=== PATIENT | male | born 1970 | race Caucasian/White ===

== ENCOUNTER 2019-05-24 10:14 | Emergency (ER) | payer OTHER, SELFPAY ==
--- NOTE | ~2019-05-24 | XR_ITS ---
EXAMINATION: XR knee LT 3V DATE: 05/24/2019 10:57 INDICATION: Posterior and lateral left knee pain post fall with twisting injury TECHNIQUE: Anteroposterior, oblique and crosstable lateral views of the left knee were obtained COMPARISON: None. FINDINGS: Alignment is normal. No fracture. No joint effusion/layering lipohemarthrosis. Prominent heterotopic ossification at the distal patellar tendon and hypertrophic change at the anterior tibial tuberosity which could represent sequela of old trauma or more likely childhood Fertile-Schlatter's disease. The re is overlying mild soft tissue swelling which could be related to acute contusion or more chronic p retibial bursitis. IMPRESSION: 1. No left knee joint effusion or acute osseous abnormality. Reviewed, dictated and finalized at location A.
[2019-05-24 10:30] VITALS: BP 145/90; PULSE 85; RESP 20; TEMP 36.4; O2SAT 98
--- NOTE | 2019-05-24 11:11 | ED.LOWEXIN ---
HPI - Extremity Injury (Lower) General Chief Complaint: Extremity Injury, Lower Stated Complaint: Twisted Ankle and cant bend his leg Source: patient Mode of arrival: ambulatory History of Present Illness HPI Narrative: This is a 49-year-old gentleman that presents with left knee pain after he twisted while stepping out of a truck, there is currently point tenderness lateral aspect of his left knee with some no swelling has decreased range of motion with extension of his left knee, there is no blunt trauma. The patient does rate his pain at about a 5/10 and currently no pain at rest. complaint: knee injury Onset (ago): hour(s) Injury: Left: knee (decrease in ability to extend knee) Type of Injury: inversion Place: work Severity: moderate Severity scale (1-10): 5 Exacerbating factors: weight bearing Context: walking Related Data Home Medications Medication Instructions Recorded Confirmed atorvastatin 40 mg PO DAILY 05/24/19 05/24/19 metformin 500 mg PO BID 05/24/19 05/24/19 metoprolol tartrate 25 mg PO DAILY 05/24/19 05/24/19 pioglitazone 30 mg PO DAILY 05/24/19 05/24/19 ticagrelor [Brilinta] 90 mg PO DAILY 05/24/19 05/24/19 Allergies Allergy/AdvReac Type Severity Reaction Status Date / Time Penicillins Allergy Severe bradycardia Verified 12/15/10 17:04 Review of Systems Review of Systems: All systems reviewed & are unremarkable except as noted in HPI and below PMFSH Past Medical History Medical History (Updated 05/24/19 @ 11:19 by Phil Mathur MD) ASHD (arteriosclerotic heart disease) Diabetes mellitus HTN (hypertension) Social History Social History Smoking status: Current every day smoker Exam Const: General: no acute distress and alert Orientation/consciousness: patient oriented x3 Limitations: altered mental status HENMT: Head: normal to inspection Eyes: Conjunctivae: conjunctivae normal Pupils: Equal, round and reactive pupils present Neck: Neck: normal visual inspection Chest: Chest palpation & inspection: normal inspection of the chest Resp: Effort & Inspection: normal respiratory effort Cardio: Rate: regular rate Rhythm: regular rhythm GI: GI Palp: Yes Soft to palpation Back/Spine/Pelvis: Back: no CVA tenderness Skin: General skin exam: normal color Rashes: no rashes Neuro: General: patient oriented x3 and moves all extremities Extrem: Other: Pain in the lateral aspect of his left knee with difficulty in full extension of his left knee. Course Vital Signs Vital signs: Vital Signs Temperature 36.4 C L 05/24/19 10:30 Pulse Rate 85 05/24/19 10:30 Respiratory Rate 05/24/19 10:30 Blood Pressure 145/90 H 05/24/19 10:30 Pulse Oximetry 98 05/24/19 10:30 Temperature 36.4 C L 05/24/19 10:30 Pulse Rate 85 05/24/19 10:30 Respiratory Rate 05/24/19 10:30 Blood Pressure 145/90 H 05/24/19 10:30 Pulse Oximetry 98 05/24/19 10:30 Critical Care Time Critical Care Time Critical Care Time: No Discharge Plan Discharge Clinical Impression: Knee sprain Qualifiers: Encounter type: initial encounter Involved ligament of knee: unspecified ligament Laterality: left Qualified Code(s): S83.92XA - Sprain of unspecified site of left knee, initial encounter Patient Disposition: Home, Self-Care Condition: Stable Instructions: Antibiotic Form, Knee Sprain (ED) Additional Instructions: With negative x-rays explained to the patient advise some he follow-up with his primary care physician for further evaluation and treatment if symptoms persist. Prescriptions: New tramadol [Ultram] 50 mg tablet 50 mg PO Q6H PRN (Reason: pain) Qty: 20 RF: 0 No Action atorvastatin 40 mg tablet 40 mg PO DAILY RF: 0 metformin 500 mg tablet 500 mg PO BID RF: 0 pioglitazone 30 mg tablet 30 mg PO DAILY RF: 0 metoprolol tartrate 25 mg tablet 25 mg PO DAILY RF: 0
[2019-05-24] MEDS: KETOROLAC (*BKC) 60 MG/2 ML VIAL IM (11:13)
[2019-05-24 11:46] VITALS: BP 135/85; PULSE 88; RESP 20; O2SAT 100
== END 2019-05-24 11:47 | disposition home or self-care (01) ==
PROVIDERS: Emergency Provider Emergency Medicine; PCP Family Medicine
DX: S83.92XA Sprain of unspecified site of left knee, initial encounter (principal); X58.XXXA Exposure to other specified factors, initial encounter
CPT/HCPCS: 73562; 96372; 99283; J1885

== ENCOUNTER 2019-05-26 08:30 | Outpatient (CLI) | payer OTHER, SELFPAY ==
[2019-05-26 08:53] LABS: Basophils Absolute Auto 0.03 K/mm3 (0.00-0.10); Basophils Percent Auto 0.3 % (0.0-1.0); Eosinophils Absolute Auto 0.13 K/mm3 (0.02-0.50); Eosinophils Percent Auto 1.5 % (1.0-6.0); Hematocrit 50.1 % (40.0-54.0); Hemoglobin 16.5 g/dL (14.0-18.0); Immature Granulocyte Absolute 0.04 K/mm3 (0.00-0.00); Immature Granulocyte Percent A 0.5 % (0.0-0.0); Lymphocytes Absolute Auto 2.06 K/mm3 (1.10-4.50); Lymphocytes Percent Auto 23.3 % (18.0-42.0); Mean Corpuscular HGB Conc 32.9 g/dL (32.0-36.0); Mean Corpuscular Hemoglobin 29.4 pg (27.0-31.0); Mean Corpuscular Volume 89.1 fL (78.0-102.0); Mean Platelet Volume 11.1 fl (8.7-11.0); Monocytes Absolute Auto 0.85 K/mm3 (0.10-0.90); Monocytes Percent Auto 9.6 % (2.0-11.0); Neutrophils Absolute Auto 5.7 K/mm3 (1.7-7.2); Neutrophils Percent Auto 64.8 % (50.0-70.0); Platelet Count Result 211 K/mm3 (150-420); Red Blood Count 5.62 M/mm3 (4.70-6.10); Red Cell Distribution Width 12.8 % (11.6-14.4); White Blood Count 8.8 K/mm3 (4.8-10.8)
[2019-05-26 09:54] LABS: Anion Gap 10.9 mmol/L (7-16); Blood Urea Nitrogen 15 mg/dL (7-18); Calcium 9.2 mg/dL (8.5-10.1); Carbon Dioxide 32 mmol/L (21-32); Chloride 102 mmol/L (98-108); Estimated Glomerular Filt Rate 59; Glucose 178 mg/dL (70-99); Osmolality Calculated 294 mOsm/kg (285-295); Potassium 4.9 mmol/L (3.5-5.1); Prostate Specific Antigen 1.3 ng/mL (< OR = 4.0); Sodium 140 mmol/L (136-145)
== END 2019-05-26 08:31 | disposition home or self-care (01) ==
LOC: CHSLAB 08:33
PROVIDERS: PCP Family Medicine; Visit Provider Family Medicine
DX: E11.9 Type 2 diabetes mellitus without complications (principal); Z12.5 Encounter for screening for malignant neoplasm of prostate; I10 Essential (primary) hypertension
CPT/HCPCS: 36415; 80048; 83036; 84153; 85025; G0103

== ENCOUNTER 2019-07-18 07:39 | Inpatient (IN) | payer OTHER, SELFPAY ==
[2019-07-18] VITALS (25 sets, daily range): BP systolic 137–171; BP diastolic 85–108; PULSE 69–90; RESP 10–21; TEMP 36.1–36.9; O2SAT 93–99; BMI 32.2
--- NOTE | ~2019-07-18 | XR_ITS ---
XR chest 2V DATE: 07/18/2019 08:07 INDICATION: Mid chest pain TECHNIQUE: AP and lateral views COMPARISON: 11/04/2017 lateral chest 11/04/2017 PA chest and right RIBS FINDINGS: Normal heart size. Mild aortic tortuosity. No pulmonary infiltrate or consolidation, pleural effusion or pulmonary vascular congestion or pneumo thorax is detected. No hilar or mediastinal enlargement. Degenerative changes of the thoracic and lumbar spine. IMPRESSION: No active cardiopulmonary disease Reviewed, dictated and finalized at location A.
--- NOTE | 2019-07-18 07:49 | ECG_ITS ---
Measurements Intervals [place] Rate: 78 P: 14 CT: 125 QRS: 35 QRSD: 103 T: 39 QT: 370 QTc: 423 Interpretive Statements SINUS RHYTHM DELAYED PRECORDIAL R/S TRANSITION BORDERLINE ST-T WAVE ABNORMALITY- INFERIOR LEADS BORDERLINE ECG Electronically Signed On 07-18-2019 8:00:02 CDT by Main Rosa D.O.
--- NOTE | 2019-07-18 07:57 | ED.CHESTPAIN ---
HPI - Chest Pain General Chief Complaint: Chest Pain Stated Complaint: CP Time Seen by Provider: 07/18/19 07:57 Source: patient Mode of arrival: EMS Limitations: no limitations History of Present Illness HPI narrative: Patient is a 49-year-old male who presents to the emergency department via EMS for chest pain. Patient has prior history of NSTEMI with stent placement in his LAD in 2018. Patient reports noncompliance with cardiology follow-up. Patient was at work this morning when he had onset of symptoms at approximately 0630. Patient has noted his symptoms to be intermittent, but fairly persistent. He does report improvement in his chest pain with sublingual nitroglycerin given by EMS. EMS also administered 4 baby aspirin. Patient has had nausea but denies any vomiting. He reports shortness of breath. He denies any diaphoresis. He denies radiation of his chest pain, but does report numb tingling sensation in his left arm and hand. MD complaint: chest pain Pertinent past history: coronary artery disease, prior [place] and [employer] Timing of current episode: still present Pain location: substernal Pain radiation: none Associated symptoms: nausea and dyspnea Treatment prior to arrival: aspirin and nitroglycerin Related Data Home Medications Medication Instructions Recorded Confirmed atorvastatin 40 mg PO DAILY 05/24/19 05/24/19 metformin 500 mg PO BID 05/24/19 05/24/19 metoprolol tartrate 25 mg PO DAILY 05/24/19 05/24/19 pioglitazone 30 mg PO DAILY 05/24/19 05/24/19 ticagrelor [Brilinta] 90 mg PO DAILY 05/24/19 05/24/19 Allergies Allergy/AdvReac Type Severity Reaction Status Date / Time Penicillins Allergy Severe bradycardia Verified 12/15/10 17:04 amoxicillin Allergy Hives Verified 07/18/19 08:08 Review of Systems Review of Systems: All systems reviewed & are unremarkable except as noted in HPI and below Constitutional: Constitutional: Denies excessive sweating Cardiovascular: Cardiovascular: Reports chest pain Respiratory: Respiratory: Reports dyspnea Gastrointestinal: Gastrointestinal: Denies abdominal pain, Reports nausea and Denies vomiting PMFSH Past Medical History Medical History ASHD (arteriosclerotic heart disease) Diabetes mellitus HTN (hypertension) NSTEMI (non-ST elevated myocardial infarction) Surgical History Surgical History History of cardiac catheterization History of coronary angioplasty with insertion of stent History of orthopedic surgery Social History Social History (Updated 07/18/19 @ 08:17 by Riana Delvalle MD) Smoking packs per day: 0.5 Smoking cigarettes per day: 10.0 Smoking status: Current every day smoker Exam Const: General: cooperative, no acute distress and alert Nutritional Appearance: obese Orientation/consciousness: patient oriented x3 Limitations: no limitations HENMT: Mouth: Yes lip normal and Yes moist mucous membranes Resp: Effort & Inspection: normal respiratory effort Auscultation: clear to auscultation bilaterally Cardio: Rate: regular rate Rhythm: regular rhythm GI: GI Palp: Yes Soft to palpation and No Tenderness to palpation present (GI) Auscultation: normal bowel sounds Skin: General skin exam: normal color Neuro: General: patient oriented x3 Cognition (Neuro): normal cognition Speech: normal speech Extrem: General: normal to inspection, full ROM and no clubbing, cyanosis or edema Psych: Mental Status: mental status grossly normal Affect: normal affect Attitude: cooperative Course Course Emergency Course: Patient presents to the emergency department with report of chest pain with history of coronary artery disease and NSTEMI in the past. Patient with nonspecific EKG changes this morning and elevated troponin. Patient pain-free after administration of sublingual nitroglycerin in the emergency department. Nitrog
[2019-07-18 08:02] LABS: Basophils Absolute Auto 0.1 K/mm3 (0.0-0.1); Basophils Percent Auto 0.7 % (0.2-1.2); Eosinophils Absolute Auto 0.2 K/mm3 (0-0.3); Eosinophils Percent Auto 1.7 % (0-4.4); Hemoglobin 15.5 g/dL (14.0-18.0); Immature Granulocyte Absolute 0.04 K/mm3 (0.00-0.031); Immature Granulocyte Percent A 0.4 % (0-0.5); Lymphocytes Absolute Auto 2.07 K/mm3 (0.9-3.2); Lymphocytes Percent Auto 22.6 % (18.3-44.2); Mean Corpuscular Hemoglobin 29.6 pg (26-34); Mean Corpuscular Volume 89.7 fl (80-100); Monocytes Absolute Auto 0.9 K/mm3 (0.1-0.6); Monocytes Percent Auto 9.5 % (2.6-8.5); Neutrophils Percent Auto 65.1 % (45.5-73.1); Platelet Count Result 208 k/mm3 (150-375); Red Blood Count 5.24 M/mm3 (4.6-6.20); Red Cell Distribution Width 13.7 % (11.5-14.5); White Blood Count 9.2 K/mm3 (4.5-10.0)
[2019-07-18 08:14] LABS: Blood Urea Nitrogen 17 mg/dL (9-20); Calcium 9.2 mg/dL (8.4-10.2); Carbon Dioxide 28 mmol/L (22-30); Chloride 103 mmol/L (98-107); Estimated CRCL calculation 105 ml/min; Estimated Glomerular Filt Rate > 60; Glucose 255 mg/dL (75-110); Potassium 4.1 mmol/L (3.4-5.0); Sodium 136 mmol/L (137-145)
[2019-07-18 08:22] LABS: INR 0.9; Partial Thromboplastin Time 26.9 SECONDS (22.3-36.8); Prothrombin Time 11.8 Seconds (11.1-14.7)
[2019-07-18] MEDS: NITROGLYCERIN SL 0.4 MG TABLET SUBLINGUAL (08:22)
[2019-07-18] MEDS: NITROGLYCERIN OINTMENT 1 INCH DOSE TRANSDERM ×2 (08:22→12:41)
[2019-07-18 08:38] LABS: Troponin I 0.082 ng/mL (0.000-0.034)
--- NOTE | 2019-07-18 08:55 | PC.NURSE ---
Patient unable to verify medications taken at home at this time.
[2019-07-18 09:43] LABS: Glucose Point of Care 223 (65-105)
--- NOTE | 2019-07-18 10:39 | ADMGEN ---
This patient, Alberto Crenshaw, was admitted to IMU Room 231-01 @ 1035. Patient oriented to hospital policies and general routines including ID bracelet, bed and alarms, visiting hours, pain management, procedures, bathroom and other care routines, personal items, smoking policy, room service/diet, and visiting hours. Valuables list has been completed. I
--- NOTE | 2019-07-18 11:02 | ECG_ITS ---
Measurements Intervals [place] Rate: 70 P: 12 MS: 139 QRS: 61 QRSD: 103 T: 72 QT: 383 QTc: 415 Interpretive Statements SINUS RHYTHM NORMAL ECG Electronically Signed On 07-18-2019 11:47:01 CDT by Main Rosa D.O.
--- NOTE | 2019-07-18 12:15 | WPDCN ---
Assessment and Plan Assessment and plan (1) Non-ST elevation NV (NSTEMI): Code(s): I21.4 - Non-ST elevation (NSTEMI) myocardial infarction Status: Acute Assessment and Plan: History of CAD, Left anterior descending stent in August 2017. Presents with unstable angina and a non-STEMI, elevated troponins and some EKG changes which have resolved. I recommend repeat cardiac catheterization with possible PCI. Reviewed the procedure with the patient. He is eager to get this done and get discharged as he has a lot of personal problems to attend to. I have recommended repeatedly that he attend to his heart and health, follow medical advice, take it easy for at least a week with no heavy lifting or strenuous exertion, and comply with medications and follow-up. The patient agrees to take medications and follow-up. I am checking to see if we can proceed with PCI today. (2) HTN (hypertension): Code(s): I10 - Essential (primary) hypertension Status: Acute Assessment and Plan: Not at goal, probably secondary to noncompliance (3) Hyperlipidemia: Code(s): E78.5 - Hyperlipidemia, unspecified Status: Acute Assessment and Plan: Resume statin (4) Tobacco use: Code(s): Z72.0 - Tobacco use Status: Acute Assessment and Plan: Smoking cessation advised (5) Diabetes mellitus: Code(s): E11.9 - Type 2 diabetes mellitus without complications Status: Acute (6) Psychosocial stressors: Code(s): Z65.8 - Other specified problems related to psychosocial circumstances Status: Acute HPI Data of Consult Date/Time: 07/18/19 12:15 Requesting Physician: Gunnar Nava MD Primary Care Provider: Jovani Jorge MD Consult Narrative Narrative: Date of service: 07/18/2019 Alberto Crenshaw is a 49 year old male whom we were kindly asked to see by the hospitalist for advice and opinion regarding the patient's unstable angina/non-STEMI in consultation. Restrict her non-STEMI August 2017 treated with a drug-eluting stent to the mid Left anterior descending by Dr. Webb. Mr. Crenshaw was last seen by Dr. Webb, jennifer, in July 2018. Although he did follow-up in taking his aspirin/Brilinta as recommended after his stent, he subsequently has been noncompliant with follow-up and noncompliant with medications. He was doing well until this morning when he developed squeezing chest discomfort and intermittent numbness to his left arm. An ambulance was called and he was given some nitroglycerin there as well as in the emergency room. His discomfort is completely resolved after 3 or 4 nitros. The patient had a non-STEMI in August 2017. He had a subtotal occlusion of the mid Left anterior descending which was addressed with a 3 x 15 mm drug-eluting stent by Dr. Webb. He had a large area of apical akinesis, EF 35% of the time. The 1st OM had a 40-50% stenosis but otherwise there was no significant disease of the other vessels. The patient has a history of hypertension, hyperlipidemia, diabetes and smoking. It is unclear if he is taking all of his medications at this time and the patient could not recall all of his medications. Thus our medication list may be incomplete or inaccurate. Review of Systems Constitutional: Constitutional: Denies weakness Eyes: Eyes: Denies blurry vision ENT: Denies dysphagia and Denies epistaxis Cardiovascular: Cardiovascular: Reports chest pain, Denies pedal edema, Denies leg edema, Denies lightheadedness and Denies palpitations Respiratory: Respiratory: Denies chest congestion, Denies cough, Denies dyspnea and Denies dyspnea on exertion Gastrointestinal: Gastrointestinal: Denies abdominal pain, Denies hematochezia and Denies hematemesis Musculoskeletal: Musculoskeletal: Reports arthralgias Integu
[2019-07-18 12:38] LABS: Glucose Point of Care 167 (65-105)
[2019-07-18] MEDS: METOPROLOL TARTRATE 25 MG TABLET PO ×2 (13:30→21:08)
--- NOTE | 2019-07-18 14:45 | WPDMODSED ---
Moderate Sedation Note-Pt Data Patient Data Allergies Allergy/AdvReac Type Severity Reaction Status Date / Time Penicillins Allergy Severe bradycardia Verified 12/15/10 17:04 amoxicillin Allergy Hives Verified 07/18/19 08:08 Home Medications Medication Instructions Recorded Confirmed Type atorvastatin 40 mg PO DAILY 05/24/19 07/18/19 History metformin 500 mg PO BID 05/24/19 07/18/19 History metoprolol tartrate 25 mg PO DAILY 05/24/19 07/18/19 History pioglitazone 30 mg PO DAILY 05/24/19 07/18/19 History Current Medications: Active Medications Aspirin (Aspirin Chewable) 81 mg PO DAILY@0800 FUAD Atorvastatin Calcium (Lipitor) 40 mg PO DAILY [facility] Sodium Chloride (Normal Saline Iv) 500 mls @ 100 mls/hr IV CONT .Q5H [facility] Metoprolol Tartrate (Lopressor) 25 mg PO DAILY [facility] Nitroglycerin (Nitroglycerin Oint 1 Inch) 1 inch TRANSDERM Q6HR [facility] Last Admin: 07/18/19 12:41 Dose: 1 inch Documented by: Nitroglycerin (Nitrostat Subl 0.4 Mg (1/150)) 0.4 mg SUBLINGUAL Q5MIN PRN PRN Reason: Chest Pain Ondansetron HCl (Zofran Inj) 4 mg IV PUSH Q4H PRN PRN Reason: Nausea Pioglitazone HCl (Actos) 30 mg PO DAILY [facility] Sedation/Anesthesia: No previous sedation/anesthesia problems (including family history). [facility] Past Medical History Medical History ASHD (arteriosclerotic heart disease) Diabetes mellitus HTN (hypertension) Hyperlipidemia NSTEMI (non-ST elevated myocardial infarction) Left anterior descending stent in August 2017 Tobacco use Surgical History Surgical History History of cardiac catheterization History of coronary angioplasty with insertion of stent History of orthopedic surgery Family History Family History (Updated 07/18/19 @ 10:45 by Susan Jurado RN) Father Diabetes mellitus FH: heart attack Hypertension Mother Diabetes mellitus FH: heart attack Hypertension Social History Social History (Updated 07/18/19 @ 12:35 by Jaimie Marie MD) Social History: Patient is but on board terms with his . He has 2 young children. 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 He is very stressed by his social situation. In addition it sounds like he is signing some type of contract for a new apartment this week and will need to transport his personal belongings to this apartment. He states he has no friends or family that can help. Smoking packs per day: 0.5 Smoking cigarettes per day: 10.0 Years smoked: 35 Smoking pack-years: 17.50 Smoking status: Heavy tobacco smoker Tobacco type: cigarettes Alcohol intake: never Substance use: never Gender identity (if verbalized by the patient): Male Spiritual care concerns: No Mod Sed Physical Exam Physical Exam Pre Procedural Exam: Normal: Airway Hours since solid foods: 12 Hours since liquid intake: 12 Internal Medicine - PN: Obj Da Vital Signs Vital Signs: Vital Signs - 24 hr 07/18/19 07:43 07/18/19 07:48 07/18/19 08:24 Temperature 36.9 C Pulse Rate 81 85 80 Respiratory Rate 12 19 Blood Pressure 171/102 H 155/105 H Pulse Oximetry 98 94 07/18/19 08:46 07/18/19 09:38 07/18/19 10:18 Temperature Pulse Rate 83 69 77 Respiratory Rate 21 H 18 13 Blood Pressure 145/95 H 141/85 H 149/104 H Pulse Oximetry 93 98 97 07/18/19 10:35 07/18/19 11:17 07/18/19 12:00 Temperature 36.1 C L 36.2 C L Pulse Rate 76 77 69 Respiratory Rate 18 18 Blood Pressure 166/105 H 151/94 H 154/94 H Pulse Oximetry 99 98 07/18/19 13:30 Temperature Pulse Rate 77 Respiratory Rate Blood Pressure Pulse Oximetry Meds/Results Medications: Active Medications Generic Name Dose Route Start Last Admin Trade Name Freq PRN Reason Stop Dose Admin Aspirin 81 mg 07/19/19 08:00 Aspirin Chewable PO DAILY@0800 FUAD Atorvastatin Calcium 40 mg 07/19/19 09:00 Lipitor PO DAILY FUAD Sodium Chloride 500 mls @ 100 mls/hr 07/18/19 12:50 Normal
--- NOTE | 2019-07-18 14:45 | WPDHPUPDATE1 ---
History and Physical Update Update Date/Time: 07/18/19 14:45 History and Physical has been reviewed, including an updated exam of the patient. There are NO changes in the patient's condition. Risks, benefits, and alternatives have been discussed and questions answered. Patient agrees to proceed with procedure.
--- NOTE | 2019-07-18 15:02 | WPDCARDPROC ---
Cardiac Cath Procedure Note Date of procedure:: 07/18/19 Performing physician:: Cedric Unger MD Procedure Procedure note:: CARDIAC CATHETERIZATION AND PERCUTANEOUS CORONARY INTERVENTION REPORT DATE OF PROCEDURE: 07/18/2019 INDICATION FOR PROCEDURE: Acute coronary syndrome - non ST elevation myocardial infarction BRIEF CLINICAL HISTORY: 49-year-old male with known CAD, history of non ST elevation AK status post PCI/ stenting of mid LAD using a 3.0 x 15 mm everolimus eluting stent on 09/05/2017 in the setting of non ST elevation AK; hypertension, type 2 diabetes mellitus, tobacco abuse, and noncompliance. Patient was admitted to the hospital with complaints of chest discomfort. His EKG did not show any significant ST-T abnormalities. Troponins were significantly elevated with current peak troponin level of 35.6 Patient was referred by Dr. Marie for coronary angiogram. Benefits and risks of the procedure were discussed with patient and informed consent was taken prior to the procedure. PROCEDURES PERFORMED: 1. Left heart catheterization- Selective left and right coronary angiogram; left ventriculogram and hemodynamic assessment 2. Percutaneous coronary intervention-Balloon angioplasty and stenting of subtotal occlusion of OM 1 branch using a 2.5 x 13 mm Biotronik orsiro sirolimus eluting stent. 3. Selective right common femoral angiogram and deployment of Angio-Seal hemostatic device 4. Moderate sedation-CPT code 15806 MODERATE SEDATION: Midazolam 1 mg; fentanyl 25 mcg. Start time 1517 , Stop time 1539 ; Total [id number] time 22 minutes; Lalit Bloom RN was trained observer for moderate sedation. ACCESS SITE: Right common femoral artery PROCEDURE NOTE: After obtaining informed consent, patient was brought to catheterization lab and prepped and draped in a usual sterile manner. After local anesthesia with lidocaine, right common femoral artery access was taken with micropuncture needle followed by insertion of a 6 Setswana sheath. Selective left and right coronary angiogram was performed using 5 Setswana JL4 and JR4 catheters respectively. Orthogonal views were taken. Next, a 5 Setswana pigtail catheter was advanced in the LV cavity and was flushed with normal saline. LV pressure measurement was performed. After this, left ventriculogram was performed. The catheter was flushed again, and gradient across the aortic valve was measured on the pullback of the catheter. Selective right common femoral angiogram was performed after PCI followed by successful deployment of Angio-Seal vascular closure device. Patient tolerated procedure well without any immediate procedure related complications. FINDINGS: LEFT MAIN CORONARY: the left main coronary artery is a large caliber, short vessel without angiographically significant focal stenosis. The vessel bifurcates into LAD and left circumflex branches. LEFT ANTERIOR DESCENDING ARTERY: The proximal LAD is a medium to large caliber vessel without significant focal stenosis; previously placed stent in the mid segment is patent without significant luminal loss; the LAD tapers distally and reaches the LV apex. There is slightly blood flow in the LAD. D3-Major diagonal branch is a medium-sized vessel without significant focal stenosis. D1 and D2 are small diagonal branches with high-grade stenosis at the ostium. LEFT CIRCUMFLEX ARTERY: The left circumflex artery is a large size, dominant vessel. There is mild eccentric were 20% stenosis in the proximal segment at the origin of the OM1 branch. The OM1 branch itself has 99% stenosis in the proximal segment. OM2, OM3 branches are small to medium-sized vessels without significant focal stenosis. OM 4 branch is a medium-sized vessel with [id number] diffuse disease. The LCX gives rise to medium to large size LPDA without significant focal stenosis. Distal LCX has [id number] diffuse disease. RIGHT CORONARY ARTERY: The right coronary arter
--- NOTE | 2019-07-18 15:45 | PM.IMHP ---
H&P: HPI History of Present Illness Chief complaint: nstemi,diabetic hyperglycemia Narrative: Alberto Crenshaw is a 49 year old male with known CAD here for chest pain. Patient on 6:00 a.m. this morning awoke with squeezing chest pain. There is no radiation to the pain but he does state his left arm was numb. No shortness of breath or nausea. The pain occurred at rest. He did not have any emotional stress recently. He was at work and an ambulance was called. Patient was treated in the ambulance as chest pain did improve. Patient was brought to the emergency room for evaluation. In the emergency room he received nitroglycerin and his chest pain resolved. His 1st troponin was elevated and increased to 35.6. EKG showed borderline ST T wave changes in the inferior leads. Repeat EKG was read as normal. Chest x-ray was clear. Patient was seen by cardiology and was taken for heart catheterization. 99% stenosis of the proximal segment the 1st OM branch with stent placement. He also had a high-grade stenosis at the ostium of a small size D1 and D2. His EF was 60-65%. This evening patient feels better. He tells me that he has stopped all these medicines over the past few months including aspirin. He does not check his blood pressure glucose at home. He has not been having any recent complaints of chest pain, shortness of breath or dyspnea on exertion. He does have a mild headache which began after his treatment in the emergency room. He states he has chronic hematuria noted 25 years ago without a clear diagnosis. He denies any depression or anxiety. He has been having increased stress at home. He does have a chronic cough. He smokes about 1-10 cigarettes per day and has smoked for about 35 years. He denies alcohol or drug use. No fever or chills. No dysuria. He denies unexplained fever, weight loss or night sweats. Review of Systems Review of Systems: All systems reviewed & are unremarkable except as noted in HPI and below PMFSH Past Medical History Medical History ASHD (arteriosclerotic heart disease) Diabetes mellitus HTN (hypertension) Hyperlipidemia NSTEMI (non-ST elevated myocardial infarction) Left anterior descending stent in August 2017 Tobacco use Surgical History Surgical History History of cardiac catheterization History of coronary angioplasty with insertion of stent History of orthopedic surgery Family History Family History Father Diabetes mellitus FH: heart attack Hypertension Mother Diabetes mellitus FH: heart attack Hypertension Social History Social History (Updated 07/18/19 @ 19:58 by Lino Goncalves MD) Social History: Patient is and currently lives at home with his and 2 young children. 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 He has a very stressful social situation. He states he has no friends or family that can help. He smokes 1-10 cig./day x 35 yrs. no alcohol or drug use. He nominates his father to be the individual to make medical decisions for him if he is not able ([phone]). He specifically states he does not want his to make decisons for him. He was in the [employer] x 17 yrs. Smoking packs per day: 0.5 Smoking cigarettes per day: 10.0 Years smoked: 35 Smoking pack-years: 17.50 Smoking status: Heavy tobacco smoker Tobacco type: cigarettes Alcohol intake: never Substance use: never Gender identity (if verbalized by the patient): Male Spiritual care concerns: No Meds Home Medications and Allergies Home Medications Medication Instructions Recorded Confirmed Type aspirin [Children's Aspirin] 81 mg PO DAILY@0800 #30 tablet 07/19/19 Rx atorvastatin 40 mg PO DAILY #30 tablet 07/19/19 07/18/19 Rx losartan 25 mg PO QAM #30 tablet 07/19/19 Rx metformin 500 mg PO BID #60 tablet 07/19/19 07/18/19 Rx metoprolol tartrate 25 mg PO
--- NOTE | 2019-07-18 16:50 | PC.NURSE ---
1500 - to cardiac clinical genetics laboratory chief for procedure via stretcher accompanied by RN's
--- NOTE | 2019-07-18 17:07 | PC.NURSE ---
1700- RETURNED TO ROOM - POST PROCEDURE- RIGHT GROIN SITE-WNL- DRESSING CDI, +2 PEDAL PULSE
[2019-07-18] MEDS: SODIUM CHLORIDE 0.9% IV 1,000 ML 125 ML IV CONT (17:11)
[2019-07-18] MEDS: PIOGLITAZONE HCL 30 MG TABLET PO (17:15)
[2019-07-18] MEDS: ATORVASTATIN 40 MG TABLET PO (17:15)
[2019-07-18] MEDS: ACETAMINOPHEN 325 MG TABLET 650 MG PO (17:23)
[2019-07-18] MEDS: LOSARTAN POTASSIUM 25 MG TABLET PO (17:23)
[2019-07-18 20:00] LABS: Glucose Point of Care 151 (65-105)
[2019-07-18 20:49] LABS: Glucose Point of Care 164 (65-105)
[2019-07-18] MEDS: TICAGRELOR 90 MG TABLET PO (21:09)
[2019-07-19] VITALS (10 sets, daily range): BP systolic 109–140; BP diastolic 70–94; PULSE 72–87; RESP 18–20; TEMP 35.9–36.4; O2SAT 96–99
[2019-07-19 05:33] LABS: Hematocrit 46.6 % (42.0-52.0); Hemoglobin 15.5 g/dL (14.0-18.0); Mean Corpuscular HGB Conc 33.3 g/dl (32-36); Mean Corpuscular Hemoglobin 29.8 pg (26-34); Mean Corpuscular Volume 89.6 fl (80-100); Platelet Count Result 197 k/mm3 (150-375); Red Cell Distribution Width 13.8 % (11.5-14.5); White Blood Count 11.5 K/mm3 (4.5-10.0)
[2019-07-19 05:43] LABS: Alanine Aminotransferase 34 U/L (4-50); Alkaline Phosphatase 79 U/L (38-126); Aspartate Amino Transferase 102 U/L (17-59); Bilirubin,Total 0.5 mg/dL (0.2-1.3); Blood Urea Nitrogen 14 mg/dL (9-20); Calcium 9.4 mg/dL (8.4-10.2); Carbon Dioxide 27 mmol/L (22-30); Chloride 102 mmol/L (98-107); Cholesterol 193 mg/dL (0-200); Estimated CRCL calculation 103 ml/min; Estimated Glomerular Filt Rate > 60; Glucose 165 mg/dL (75-110); HDL Direct 33 mg/dL; Magnesium 1.7 mg/dL (1.6-2.3); Phosphorus 3.4 mg/dL (2.5-4.5); Potassium 4.6 mmol/L (3.4-5.0); Sodium 137 mmol/L (137-145); Triglycerides 304 mg/dL (<150)
[2019-07-19 05:54] LABS: LDL Cholesterol Direct 105 mg/dL
[2019-07-19 07:42] LABS: Glucose Point of Care 145 (65-105)
[2019-07-19] MEDS: LOSARTAN POTASSIUM 25 MG TABLET PO (08:44)
[2019-07-19] MEDS: PIOGLITAZONE HCL 30 MG TABLET PO (08:44)
[2019-07-19] MEDS: ATORVASTATIN 40 MG TABLET PO (08:44)
[2019-07-19] MEDS: ASPIRIN 81 MG CHEWABLE TABLET PO (08:44)
[2019-07-19] MEDS: TICAGRELOR 90 MG TABLET PO (08:44)
[2019-07-19] MEDS: METOPROLOL TARTRATE 25 MG TABLET PO (08:44)
[2019-07-19 12:24] LABS: Glucose Point of Care 137 (65-105)
--- NOTE | 2019-07-19 13:22 | PM.PNCARD ---
Progress Note: A&P Assessment and Plan (1) Non-ST elevation NH (NSTEMI): Code(s): I21.4 - Non-ST elevation (NSTEMI) myocardial infarction Status: Acute Assessment and Plan: Patient with known CAD, new non-STEMI, status post drug-eluting stent to the OM 1 yesterday. Troponins went up to 36, but he has good left ventricular function and no arrhythmias. I think it is reasonable for him to be discharged today. Reviewed importance of medication compliance in general, particularly with dual anti-platelet therapy. Recommended smoking cessation, heart healthy eating, control diabetes, follow-up in the office, and stress reduction. Reviewed weight restrictions and activity restriction post catheterization. Okay to return to work in 1 week, next Tuesday. 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 Patient did express some interest in cardiac rehab. Will discuss at the time of his follow-up visit. (2) ASHD (arteriosclerotic heart disease): Code(s): I25.10 - Atherosclerotic heart disease of [place] coronary artery without angina pectoris Status: Acute Assessment and Plan: Left anterior descending stent in 2018. Patent. (3) Hyperlipidemia: Code(s): E78.5 - Hyperlipidemia, unspecified Status: Acute Assessment and Plan: Atorvastatin resumed (4) HTN (hypertension): Code(s): I10 - Essential (primary) hypertension Status: Acute Assessment and Plan: Blood pressure improving (5) Tobacco use: Code(s): Z72.0 - Tobacco use Status: Acute Assessment and Plan: Smoking cessation recommended (6) Psychosocial stressors: Code(s): Z65.8 - Other specified problems related to psychosocial circumstances Status: Acute Assessment and Plan: Encouraged the patient to address is psychosocial stressors and marital issues in a healthy manner. Subjective Date/time seen: 07/19/19 13:22 Follow-up for non-STEMI, CAD Date of service: 07/19/2019 Patient underwent PCI yesterday with a stent to the OM 1. The Left anterior descending stent was patent and LV function was good, EF 60-65%. He feels well today, up and about and the room with no shortness of breath or chest pain. He expresses concern as he needs to go back to work to pay his bills. He also is having some marital difficulties and wishes to address them and maintain contact with his 2 small children. Review of Systems Constitutional: Constitutional: Denies weakness ENT: Denies epistaxis Cardiovascular: Cardiovascular: Denies chest pain, Denies leg edema, Denies lightheadedness and Denies palpitations Respiratory: Respiratory: Denies chest congestion, Denies dyspnea and Denies dyspnea on exertion Gastrointestinal: Gastrointestinal: Denies abdominal pain and Denies hematochezia Genitourinary: Genitourinary: Denies dysuria Musculoskeletal: Musculoskeletal: Denies back pain Integumentary/Breasts: Skin/Breast: Denies rash Neurologic: Denies Abnormal speech present Psychiatric: Psychiatric: Reports depression Exam Narrative: Exam Narrative: Patient appears in no distress but is not very happy; appears irritable. Const: General: comfortable and no acute distress HENMT: General nose exam: no epistaxis Eyes: EOM: EOMs intact bilaterally Neck: Neck: supple Resp: Effort & Inspection: normal respiratory effort Auscultation: wheezes (Few scattered wheezes bilaterally) Cardio: Rate: regular rate Rhythm: regular rhythm Heart sounds: no murmurs GI: Inspection: non-distended Skin: General skin exam: normal color Neuro: Speech: normal speech Extrem: Right lower extremity: no edema Left lower extremity: no edema Other: Cath site soft and no
--- NOTE | 2019-07-19 14:34 | PM.DS ---
DS: Diagnosis Admitting Diagnosis Admitting Diagnosis: Non-ST elevation (NSTEMI) myocardial infarction Discharge Diagnosis (1) Non-ST elevation SC (NSTEMI): Code(s): I21.4 - Non-ST elevation (NSTEMI) myocardial infarction Status: Acute Assessment and Plan: Patient presented with chest pain. Troponin peaked at 35. EKG showing only mild changes. Left heart catheterization showing 99% stenosis of the proximal segment of the 1st OM branch and drug-eluting stent was placed. Patient tolerated the procedure well. He was placed on aspirin, Lipitor, beta-yelena and Brilinta. Discussed at length with patient about the benefits of medication compliance and the risks of stopping these medications. (2) Diabetes mellitus: Qualifiers: Diabetes mellitus type: type 2 Diabetes mellitus terminal operator insulin use: without terminal operator use Diabetes mellitus complication status: without complication Qualified Code(s): E11.9 - Type 2 diabetes mellitus without complications Code(s): E11.9 - Type 2 diabetes mellitus without complications Status: Acute Assessment and Plan: Glucose elevated on admission. Patient noncompliant with a diabetic medications. Actos was restarted. He was placed on sliding scale protocol. Hemoglobin A1c 8.0. Discussed benefits of medication compliance. (3) ASHD (arteriosclerotic heart disease): Code(s): I25.10 - Atherosclerotic heart disease of [place] coronary artery without angina pectoris Status: Acute Assessment and Plan: Patient with known atherosclerotic heart disease requiring left anterior descending stent in August 2017. Heart catheterization showing patent LAD stent. (4) HTN (hypertension): Qualifiers: Hypertension type: essential hypertension Qualified Code(s): I10 - Essential (primary) hypertension Code(s): I10 - Essential (primary) hypertension Status: Acute Assessment and Plan: Blood pressure elevated on admission. Blood pressure improved with treatment. His metoprolol tartrate was advanced to twice a day. Losartan was also started. (5) Hyperlipidemia: Qualifiers: Hyperlipidemia type: unspecified Qualified Code(s): E78.5 - Hyperlipidemia, unspecified Code(s): E78.5 - Hyperlipidemia, unspecified Status: Acute Assessment and Plan: Patient has been off of his atorvastatin. This was resumed. AST was elevated at 102 with LDL 105, HDL 33, total chol 193 and TG 304. Will continue Atorvastatin and repeat LFTs in the outpatient. (6) Tobacco use: Code(s): Z72.0 - Tobacco use Status: Acute Assessment and Plan: Patient has been educated about the benefits of smoking cessation. DS: Summary Hospital Course Reason for hospitalization: 49yo male with CAD here for CP and found to have NSTEMI. Please see H&P for details. Hospital Course: As above. Time Spent with Patient Time attestation: Total time spent providing and/or coordinating discharge services:31 minutes Time spent: Greater than 30 minutes Specific discharge activities: Discussed with cardiology, patient education Exam Narrative: Exam Narrative: Gen - NARD Chest - few scattered rhonchi but improved CV - RRR S1/S2. Abd - Soft, NT/ND, Positive BS Ext - No pedal edema. No hematoma at cath site. Psych - more animated today Skin - Warm and dry DS: Data Data Completed and Pending Labs on day of discharge: Labs from last 24 hours 07/19/19 07/19/19 07/19/19 12:12 07:39 05:15 WBC RBC Hgb Hct MCV MCH MCHC RDW Plt Count MPV Sodium Potassium Chloride Carbon Dioxide BUN Creatinine Estim Creat Clear Calc Estimated GFR Glucose POC Capillary Glucose 137 H 145 H Calcium Phosphorus Magnesium Total Bilirubin AST ALT Alkaline Phosphatase Total Protein Albumin Triglycerid
== END 2019-07-19 15:58 | disposition home or self-care (01) | DRG 247 ==
LOC: ANHED 09:30 → ANHIMU 10:29
PROVIDERS: Internal Medicine Cardiovascular Disease; Admitting Provider Internal Medicine; Emergency Provider Emergency Medicine; PCP Family Medicine; Visit Provider Internal Medicine
PROC: 4A023N7 Measurement of Cardiac Sampling and Pressure, Left Heart, Percutaneous Approach (ICD-10-PCS; CPT 93452; principal; 2019-07-18 14:30)
PROC: 027034Z Dilation of Coronary Artery, One Artery with Drug-eluting Intraluminal Device, Percutaneous Approach (ICD-10-PCS; CPT 92928; 2019-07-18 14:30)
PROC: 027034Z Dilation of Coronary Artery, One Artery with Drug-eluting Intraluminal Device, Percutaneous Approach (ICD-10-PCS; 2019-07-18 14:30)
DX: I21.4 Non-ST elevation (NSTEMI) myocardial infarction (principal); I25.110 Atherosclerotic heart disease of native coronary artery with unstable angina pectoris; I10 Essential (primary) hypertension; E11.65 Type 2 diabetes mellitus with hyperglycemia; E78.5 Hyperlipidemia, unspecified; F17.210 Nicotine dependence, cigarettes, uncomplicated; Z91.19 Patient's noncompliance with other medical treatment and regimen; I25.2 Old myocardial infarction; Z95.5 Presence of coronary angioplasty implant and graft; Z65.8 Other specified problems related to psychosocial circumstances
CPT/HCPCS: 36415; 71046; 80048; 80053; 80061; 82948; 83735; 84100; 84443; 84484; 85025; 85027; 85610; 85730; 93005; 93458; 99291; A9270; C1725; C1760; C1769; C1874; C1887; C1894; C9600; G0269; J0583; J1644; J2250; J3010; J7030; J7040

== ENCOUNTER 2019-08-18 06:54 | Outpatient (CLI) | payer OTHER, SELFPAY ==
--- NOTE | ~2019-08-18 | MR_ITS ---
EXAMINATION: MR knee LT wo con DATE: 08/18/2019 07:51 INDICATION: Left knee pain. TECHNIQUE: Magnetic resonance imaging (MRI) of the left knee was performed without intravenous contra st. Sequences included axial PD-weighted FS FSE, coronal PD-weighted FSE and PD-weighted FS FSE, sagi ttal PD-weighted FSE, and sagittal T2-weighted FS FSE. COMPARISON: Left knee radiographs 05/24/2019 FINDINGS: Medial compartment: Medial meniscus is normal. There is deep partial thickness cartilage loss of femoral condyle at the c entral articular surface. There is cartilage surface irregularity of tibial condyle. Lateral compartment: There is a bucket-handle tear of lateral meniscus with an anteriorly flipped fragment. Lateral compar tment cartilage is normal. Patellofemoral compartment: There is shallow partial-thickness cartilage loss of patellar lateral facet. There is shallow partial -thickness cartilage loss of trochlea. Ligaments and tendons: The anterior and posterior fusion ligaments are normal. There are changes of prior sprain of medial c ollateral ligament characterized by thickening. There are changes of prior sprain of fibular collater al ligament characterized by thickening and increased signal intensity. Patellar tendon is normal. Th ere is fragmentation of tibial tubercle. Fluid: There is a small knee joint effusion. There is a ruptured moderate-sized Drew's cyst. IMPRESSION: 1. Moderate chondrosis of medial compartment and mild chondrosis of patellofemoral compartment. 2. Bucket-handle tear of lateral meniscus with anteriorly flipped fragment. 3. Small knee joint effusion. 4. Ruptured moderate-sized Drew's cyst. Reviewed, dictated and finalized at location A. IMPRESSION: 1. Moderate chondrosis of medial compartment and mild chondrosis of patellofemo ral compartment. 2. Bucket-handle tear of lateral meniscus with anteriorly flipped fragment. 3. Small knee joint effusion. 4. Ruptured moderate-sized Drew's cyst.
== END 2019-08-18 06:55 | disposition home or self-care (01) ==
LOC: CHSIMG 06:57
PROVIDERS: PCP Family Medicine; Visit Provider Family Medicine
DX: M25.562 Pain in left knee (principal)
CPT/HCPCS: 73721

== ENCOUNTER 2019-11-08 08:43 | Emergency (ER) | payer OTHER, SELFPAY ==
--- NOTE | ~2019-11-08 | XR_ITS ---
EXAMINATION: XR chest 2V DATE: 11/08/2019 09:23 INDICATION: Chest pain, shortness of breath, dizziness and cough TECHNIQUE: frontal and lateral views of the chest were obtained. COMPARISON: Chest radiograph dated 07/18/2019 FINDINGS: The lungs remain clear with no focal airspace opacities, pulmonary edema, pleural effusion or pneumot horax. The cardiomediastinal silhouette is normal. Mild thoracolumbar spondylosis with chronic mild a nterior wedging of a few vertebral bodies at the thoracolumbar junction. IMPRESSION: 1. No acute cardiopulmonary disease. Reviewed, dictated and finalized at location B.
--- NOTE | ~2019-11-08 | CT_ITS ---
EXAMINATION: CT brain wo con DATE: 11/08/2019 10:09 INDICATION: Dizziness. Vertigo. TECHNIQUE: Computed tomography (CT) of the head was performed without intravenous contrast. The mA wa s adjusted according to patient size. Iterative reconstruction technique was employed. The dose-lengt h product was 681.00 mGy-cm. COMPARISON: Head CT 04/03/2016 FINDINGS: There is no intracranial hemorrhage, acute infarction, or abnormal intracranial mass lesion . The ventricles are normal in size. There is mild mucosal thickening in the ethmoid sinuses. The orb its are normal. The mastoid air cells are normal. C1 ring is ununited posteriorly, a normal variant. IMPRESSION: 1. Normal brain. Reviewed, dictated and finalized at location A. IMPRESSION: 1. Normal brain.
[2019-11-08 08:54] VITALS: BP 144/99; PULSE 73; RESP 14; TEMP 36.5; O2SAT 98
--- NOTE | 2019-11-08 08:59 | ECG_ITS ---
Measurements Intervals Guys Rate: 70 P: 10 MI: 129 QRS: 60 QRSD: 96 T: 67 QT: 391 QTc: 423 Interpretive Statements SINUS RHYTHM BASELINE WANDER- I, II, V3-V4, V6 NORMAL ECG Electronically Signed On 11-08-2019 10:02:42 CDT by Main Rosa D.O.
[2019-11-08 09:20] LABS: Basophils Percent Auto 0.4 % (0.2-1.2); Eosinophils Absolute Auto 0.1 K/mm3 (0-0.3); Hematocrit 50.1 % (42.0-52.0); Immature Granulocyte Absolute 0.07 K/mm3 (0.00-0.031); Immature Granulocyte Percent A 0.7 % (0-0.5); Lymphocytes Absolute Auto 2.29 K/mm3 (0.9-3.2); Lymphocytes Percent Auto 22.7 % (18.3-44.2); Mean Corpuscular HGB Conc 33.9 g/dl (32-36); Mean Corpuscular Hemoglobin 30.5 pg (26-34); Mean Corpuscular Volume 89.9 fl (80-100); Mean Platelet Volume 11.2 fl (7.4-10.4); Monocytes Percent Auto 9.4 % (2.6-8.5); Neutrophils Absolute Auto 6.6 K/mm3 (1.3-6.7); Neutrophils Percent Auto 65.8 % (45.5-73.1); Platelet Count Result 235 k/mm3 (150-375); Red Blood Count 5.57 M/mm3 (4.6-6.20); Red Cell Distribution Width 13.9 % (11.5-14.5); White Blood Count 10.1 K/mm3 (4.5-10.0)
[2019-11-08 09:27] LABS: INR 0.9; Partial Thromboplastin Time 26.3 SECONDS (22.3-36.8); Prothrombin Time 12.3 Seconds (11.1-14.7)
[2019-11-08 09:30] LABS: Anion Gap 9 mmol/L (8-16); Blood Urea Nitrogen 20 mg/dL (9-20); Calcium 9.4 mg/dL (8.4-10.2); Carbon Dioxide 23 mmol/L (22-30); Chloride 105 mmol/L (98-107); Estimated CRCL calculation 86 ml/min; Estimated Glomerular Filt Rate > 60; Glucose 179 mg/dL (75-110); Potassium 4.3 mmol/L (3.4-5.0); Sodium 137 mmol/L (137-145)
--- NOTE | 2019-11-08 09:33 | PC.NURSE ---
of pt comes to nursing station to report We were talking and he may have flipped his morning and night meds, he is not sure what he took. He also has not taken his medication for several days. MD made aware, will check blood sugar at this time.
--- NOTE | 2019-11-08 09:35 | PC.NURSE ---
bedside glucose cancelled, BS results from lab draw 179 resulted at 0911
[2019-11-08 09:42] LABS: Troponin I 0.013 ng/mL (0.000-0.034)
[2019-11-08 09:45] VITALS: BP 117/71; PULSE 74; RESP 19; O2SAT 96
--- NOTE | 2019-11-08 10:02 | ED.DIZZY ---
HPI - Dizziness General Chief Complaint: Dizziness Stated Complaint: sob Time Seen by Provider: 11/08/19 09:49 Source: patient and family Mode of arrival: ambulatory Limitations: no limitations History of Present Illness HPI Narrative: Patient is 49 years old white male presents with dizziness while driving his car, everything was a spinning, associated with nausea and vomiting lasted for about 1 hour until arrival to the emergency room currently feeling much better but still there. Patient had similar symptoms on October 23 lasted for almost half an hour with spontaneous improvement. Patient did not see any physician at that time. Currently patient denying any fever, chills, chest pain, shortness of breath, back pain or abdominal pain. Patient's at the bedside Related Data Allergies Allergy/AdvReac Type Severity Reaction Status Date / Time amoxicillin Allergy Severe Unresponsiv Verified 11/08/19 09:02 e Penicillins Allergy Severe bradycardia Verified 11/08/19 09:02 Review of Systems Review of Systems: Narrative: CONSTITUTIONAL: Denies fever, chills, or sweats. EYES: Denies visual changes, redness, or discharge. ENT: Denies rhinorrhea, congestion, sore throat, or otalgia. CARDIOVASCULAR: Denies chest pain, palpitations, or edema. RESPIRATORY: Denies cough or dyspnea. GASTROINTESTINAL: Denies abdominal pain, nausea, vomiting, or diarrhea. GENITOURINARY: Denies dysuria or hematuria. SKIN: Denies rash or itching. MUSCULOSKELETAL: Denies back pain, joint pain, or myalgia. NEUROLOGIC: Denies headache, numbness, or weakness. PSYCHIATRIC: Denies anxiety or depression. [facility] Past Medical History Medical History ASHD (arteriosclerotic heart disease) Diabetes mellitus HTN (hypertension) Hyperlipidemia NSTEMI (non-ST elevated myocardial infarction) Left anterior descending stent in August 2017 Tobacco use Surgical History Surgical History History of cardiac catheterization History of coronary angioplasty with insertion of stent History of orthopedic surgery Family History Family History Father Diabetes mellitus FH: heart attack Hypertension Mother Diabetes mellitus FH: heart attack Hypertension Other Heart disease Malignant neoplasm Social History Social History Social History: Patient is and currently lives at home with his and 2 young children. 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 He has a very stressful social situation. He states he has no friends or family that can help. He smokes 1-10 cig./day x 35 yrs. no alcohol or drug use. He nominates his father to be the individual to make medical decisions for him if he is not able ([phone]). He specifically states he does not want his to make decisons for him. He was in the [employer] x 17 yrs. Smoking packs per day: 0.5 Smoking cigarettes per day: 10.0 Years smoked: 30 Smoking pack-years: 15.00 Smoking status: Current every day smoker Tobacco type: cigarettes Second hand tobacco smoke exposure: Yes Alcohol intake: former Substance use: never Gender identity (if verbalized by the patient): Male Spiritual care concerns: No Exam Narrative: Exam Narrative: General appearance: Well-developed, well-nourished Skin: Normal color Head: Normocephalic, nontraumatic Eyes: Clear conjunctiva ENT: Oropharynx normal, ears normal, nose normal Neck: Supple, nontender Chest and respiratory: Airway patent, no respiratory distress, no accessory muscle use Heart: Regular rate/rhythm Abdomen: Soft, nontender, no organomegaly, quiet bowel sounds Vascular: Normal peripheral pulses, normal capillary refill. Musculoskeletal: Normal range of motion, nontender back Neurologic: Alert and oriented ?3, AUTOMOTIVE PAINTER is normal as tested, no gross motor deficit
[2019-11-08] MEDS: MECLIZINE HCL 25 MG TABLET PO (10:12)
[2019-11-08] MEDS: ONDANSETRON HCL ODT 4 MG TABLET PO (10:12)
[2019-11-08] MEDS: diazePAM 5 MG TABLET PO (10:13)
[2019-11-08 10:54] VITALS: BP 122/89; PULSE 73; RESP 12; O2SAT 97
[2019-11-08 11:35] VITALS: BP 119/79; PULSE 67; RESP 21; O2SAT 98
== END 2019-11-08 11:36 | disposition home or self-care (01) ==
PROVIDERS: Emergency Provider Emergency Medicine; PCP Family Medicine
DX: R42 Dizziness and giddiness (principal); I25.10 Atherosclerotic heart disease of native coronary artery without angina pectoris; E11.9 Type 2 diabetes mellitus without complications; I10 Essential (primary) hypertension; E78.5 Hyperlipidemia, unspecified; I25.2 Old myocardial infarction; Z95.5 Presence of coronary angioplasty implant and graft; F17.210 Nicotine dependence, cigarettes, uncomplicated
CPT/HCPCS: 36415; 70450; 71046; 80048; 84484; 85025; 85610; 85730; 93005; 99284; A9270

== ENCOUNTER 2020-02-09 00:44 | Outpatient (CLI) | payer OTHER, SELFPAY ==
[2020-02-09 19:13] LABS: SARS-CoV-2 RNA PCR Negative
== END 2020-02-09 00:45 | disposition home or self-care (01) ==
LOC: ANHCOVIDDT 00:44
PROVIDERS: PCP Family Medicine; Visit Provider Orthopaedic Surgery
DX: Z01.818 Encounter for other preprocedural examination (principal); Z20.828 Contact with and (suspected) exposure to other viral communicable diseases
CPT/HCPCS: 87635; C9803; U0003

== ENCOUNTER 2020-02-13 00:34 | Day surgery (SDC) | payer OTHER, SELFPAY ==
[2019-09-19 16:25] VITALS: BMI 32.1
--- NOTE | 2020-02-12 12:53 | WPDANESEPPF ---
Anes - Initial Pre Proc Eval Procedure: Operation Date: 02/13/20 14:00 Proposed Procedures p Left Knee Arthroscopy, Proceed As Indicated - Jet Shields MD Date/Time: 02/12/20 12:53 Surgeon: Jet Shields MD Pre Op Diagnosis: Left Lateral Meniscus Tear Patient Data Age: 49 Gender: M Height: 1.88 m Weight: 113.63 kg Allergies Allergy/AdvReac Type Severity Reaction Status Date / Time amoxicillin Allergy Severe Unresponsiv Verified 02/13/20 11:33 e Penicillins Allergy Severe bradycardia Verified 02/13/20 11:33 Home Medications Medication Instructions Recorded Confirmed Type aspirin [Children's Aspirin] 81 mg PO DAILY@0800 #30 tablet 07/19/19 02/13/20 Rx atorvastatin 40 mg PO DAILY #30 tablet 07/19/19 02/13/20 Rx losartan 25 mg PO QAM #30 tablet 07/19/19 02/13/20 Rx metformin 500 mg PO BID #60 tablet 07/19/19 02/13/20 Rx metoprolol tartrate 25 mg PO Q12HR #60 tablet 07/19/19 02/13/20 Rx nitroglycerin 0.4 mg SUBLINGUAL DIRECTED PRN 07/19/19 02/04/20 Rx #25 tablet pioglitazone 30 mg PO DAILY #30 tablet 07/19/19 02/13/20 Rx ticagrelor [Brilinta] 90 mg PO Q12HR #60 tablet 07/19/19 02/13/20 Rx Patient hx anesthesia problems: none Family hx anesthesia problems: none PMFSH Past Medical History Medical History Arthritis ASHD (arteriosclerotic heart disease) CAD (coronary artery disease) Diabetes mellitus HTN (hypertension) Hyperlipidemia NSTEMI (non-ST elevated myocardial infarction) Left anterior descending stent in August 2017 Tobacco use Surgical History Surgical History History of cardiac catheterization History of coronary angioplasty with insertion of stent History of orthopedic surgery Family History Family History Father Diabetes mellitus FH: heart attack Hypertension Mother Diabetes mellitus FH: heart attack Hypertension Other Heart disease Malignant neoplasm Social History Social History Social History: Patient is and currently lives at home with his and 2 young children. 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 He has a very stressful social situation. He states he has no friends or family that can help. He smokes 1-10 cig./day x 35 yrs. no alcohol or drug use. He nominates his father to be the individual to make medical decisions for him if he is not able ([phone]). He specifically states he does not want his to make decisons for him. He was in the [employer] x 17 yrs. Smoking packs per day: 0.5 Smoking cigarettes per day: 10.0 Years smoked: 30 Smoking pack-years: 15.00 Smoking status: Current every day smoker Tobacco type: cigarettes Second hand tobacco smoke exposure: Yes Alcohol intake: former Substance use: never Living arrangements: with family Gender identity (if verbalized by the patient): Male Spiritual care concerns: No Anes - Eval Final PreProcedure Day of Procedure 02/12/20 12:53 Patient weight: obese Heart: regular rate and rhythm Lungs: clear to auscultation and normal air movement Airway: Mallampati scale class II Neurological: alert and oriented Last oral intake: >/= 8 hours ASA classification: III Emergent: no Anesthetic plan: proceed Anesthesia type and monitoring: general LMA Informed Consent: The patient's anesthetic plan and its attendant risks and benefits were discussed with the patient/family/POA. Questions were solicited and answers provided to the satisfaction of the patient/family/POA.
[2020-02-13] VITALS (10 sets, daily range): BP systolic 107–143; BP diastolic 67–98; PULSE 51–68; RESP 15–20; TEMP 36.2–36.8; O2SAT 93–99
--- NOTE | 2020-02-13 07:26 | WPDHPUPDATE1 ---
History and Physical Update Update Date/Time: 02/13/20 07:26 History and Physical has been reviewed, including an updated exam of the patient. There are NO changes in the patient's condition. Risks, benefits, and alternatives have been discussed and questions answered. Patient agrees to proceed with procedure.
[2020-02-13] MEDS: CELECOXIB 200 MG CAPSULE PO (12:03)
[2020-02-13] MEDS: LACTATED RINGERS 1,000 ML 30 ML IV CONT ×2 (12:03→15:55)
[2020-02-13] MEDS: ACETAMINOPHEN 500 MG TABLET 1000 MG PO (12:04)
[2020-02-13 12:06] LABS: Glucose Point of Care 103 (65-105)
[2020-02-13] MEDS: CLINDAMYCIN 900 MG/D5W 50 ML 900 MG/50 ML PIGGYBACK 50 MG IVPB (14:10)
[2020-02-13] MEDS: BUPIVACAINE HCL 0.5% PF 30 ML VIAL INFILTRATE (14:32)
--- NOTE | 2020-02-13 16:00 | PM.PROC ---
Procedure Note - Detailed Date of procedure: 02/13/20 Pre-op diagnosis: Left Lateral Meniscus Tear Post-op diagnosis: same Procedure performed: LEFT KNEE SCOPE WITH PARTIAL LATERAL MENISCECTOMY AND MINOR SYNOVECTOMY Description of procedure: PATIENT WAS TAKEN TO THE OR. THE LEFT LEG WAS PREPPED AND DRAPED IN STERILE FASHION. TROCARS WERE PLACED IN THE USUAL FASHION. CAMERA WAS INTRODUCED. THERE WAS CHONDROMALACIA TO THE PATELLA FEMORAL JOINT AND IT WAS MILD. THERE WAS MINIMAL SYNOVITIS IN THE MEDIAL COMPARTMENT. THE MEDIAL COMPARTMENT SHOWED CHONDROMALACIA TO THE MEDIAL FEMORAL CONDYLE. A SHAVER WAS USED TO PREFORM A CHONDROPLASTY. THERE WAS NO MEDIAL MENISCUS TEAR. THE ACL WAS INTACT. THE LATERAL MENISCUS WAS TORN AND THERE WAS A LARGE BUCKET HANDLE COMPONENT. THE MOST MEDIAL SIDE OF THE TEAR NEAR THE ROOT WAS VERY LACERATED AND THE TEAR EXTENDED TO THE MID SUBSTANCE OF THE MAJORITY OF THE POSTERIOR HORN OF THE MENISCUS. AT THIS POINT IT WAS DECIDED THAT THE MENISCUS WAS NOT AMENABLE TO REPAIR DUE TO ITS COMPLEX NATURE OF THE TEAR. THE TORN PART OF THE MENISCUS WAS RESECTED AND THE REMAINING SUBSTANCE WAS DEBRIDED TO A SMOOTH BASE. THE LATERAL COMPARTMENT HAD MINIMAL GRADE 2 CHONDROMALACIA AT THE LATERAL PLATEAU. CHONDROPLASTY WAS PREFORMED. A SYNOVECTOMY WAS PREFORMED WELL. THE PATELLO FEMORAL JOINT UNDERWENT CHONDROPLASTY. THERE WAS GRADE 2 CHONDROMALACIA IN THE TROCHLEA AND PART OF THE PATELLA. THE WOUNDS WERE APPROXIMATED WITH 4.0 NYLON. STERILE DRESSING WAS APPLIED. PATIENT WAS EXTUBATED. Anesthesia: GLMA Surgeon: Jet Shields MD Estimated blood loss (mL): 10 Complications: No immediate complications Condition: stable Disposition: PACU
[2020-02-13 16:05] LABS: Glucose Point of Care 106 (65-105)
--- NOTE | 2020-02-13 16:23 | SUR.PHASEI ---
[id number] - dr. hernandez at bedside
--- NOTE | 2020-02-13 18:15 | SUR.PHASEII ---
CRUTCHES GIVEN TO PATIENT.
== END 2020-02-13 18:05 | disposition home or self-care (01) ==
PROVIDERS: Visit Provider Orthopaedic Surgery
PROC: (CPT 29870; principal; 2020-02-13 14:00)
DX: S83.252A Bucket-handle tear of lateral meniscus, current injury, left knee, initial encounter (principal); M65.862 Other synovitis and tenosynovitis, left lower leg; M94.262 Chondromalacia, left knee; X50.0XXA Overexertion from strenuous movement or load, initial encounter; I10 Essential (primary) hypertension; I25.10 Atherosclerotic heart disease of native coronary artery without angina pectoris; E11.9 Type 2 diabetes mellitus without complications; I25.2 Old myocardial infarction; E78.5 Hyperlipidemia, unspecified; Z79.84 Long term (current) use of oral hypoglycemic drugs; Z79.82 Long term (current) use of aspirin; Z79.01 Long term (current) use of anticoagulants; F17.210 Nicotine dependence, cigarettes, uncomplicated; E66.9 Obesity, unspecified; Z68.31 Body mass index [BMI] 31.0-31.9, adult
CPT/HCPCS: 29881; 29876; A9270; J2250; J2405; J2704; J3010; J7120

== ENCOUNTER 2020-02-26 10:33 | Outpatient (CLI) | payer OTHER, SELFPAY ==
--- NOTE | ~2020-02-26 | US_ITS ---
EXAMINATION: US venous doppler LE EXAM DATE: 02/26/2020 11:07 INDICATION: status post left knee scope- DOS: 02/14/20. TECHNIQUE: Multiple grayscale, color flow and Doppler images of the left lower extremity deep venous system were obtained and reviewed. There is no prior study for comparison. FINDINGS: The left common femoral, femoral and profunda veins demonstrate normal color flow, respirat ory variation, augmentation and compressibility. Compressibility, color flow confirmed within the le ft popliteal, posterior tibial, peroneal, and greater saphenous veins. IMPRESSION: 1. No left lower extremity deep venous thrombosis. Reviewed, dictated and finalized at location B. L REMOVER
== END 2020-02-26 10:34 | disposition home or self-care (01) ==
PROVIDERS: Visit Provider Orthopaedic Surgery
DX: Z98.890 Other specified postprocedural states (principal)
CPT/HCPCS: 93971

== ENCOUNTER 2020-03-18 07:35 | Outpatient (RCR) | payer SELFPAY ==
--- NOTE | 2020-03-18 08:01 | PTOPEVAL ---
Thank you for referring Alberto Crenshaw to [facility].? The patient is scheduled to be seen for therapy? ____x/week for ___ weeks. Please review, sign, date and return this plan of care INES. I agree with and certify that the following plan of care is medically necessary. Referring Physician Date Admitting Provider: Attending Provider: Jet Shields MD Referring Provider: *PT Outpatient Evaluation Start: 03/18/20 07:04 Freq: Status: Active Protocol: Document 03/18/20 07:05 [facility] (Rec: 03/18/20 08:00 [facility] [id number]) Therapy Assessment Status Assessment Status Assessment Status Evaluation Outpatient Past Medical History Neurological History Hx Migraine Yes Cardiovascular History Hx Hypercholesterolemia Yes Respiratory History Hx Respiratory Disorders No Significant History Gastrointestinal History Hx Gastrointestinal Disorders No Significant History Genitourinary History Hx Genitourinary Disorders No Significant History Musculoskeletal History Hx Arthritis Yes Hx Back Injury Yes: dislocated vertabra Hx Crutches or Walker Use Yes: Will need crutches to go Query Text:If Yes, Enter Crutches, home with but no training Walker, or Both in the Comment needed. Hx Fractures Yes: left leg,right leg Hx Other Musculoskeletal Disorders Yes: left lateral menicus tear 2020 Hematological History Hx Hematological Disorders No Significant History Endocrine History Hx Diabetes Yes: PILLS HEENT History Hx Tonsillectomy Yes Integumentary History Hx Shingles Yes Reproductive History Hx Reproductive Disorders No Significant History Psychosocial History Hx Psychiatric Disorders No Significant History Pain History History of Any Previous or Ongoing No Significant History Instance of Pain Anesthesia History Hx Anesthesia Reactions No Significant History Other History Hx Other Surgeries Yes: BONE FRAGMENTS REMOVED FROM MY HEAD Evaluation Information Problem Diagnosis L knee arthroscopy Onset 04/09/19 Additional Evaluation Detail LEFS = Subjective Information patient reports he injured his Query Text:As Reported By Patient/ L knee at work. he reports he Family was climbing out of a truck for loves. he reports it was raining, he stepped on top of a bottle, and he and his knee went opposite directions. he reports this injury occured on 04/09/19. he reports he was
--- NOTE | 2020-04-11 08:09 | PTOPEVAL ---
Thank you for referring Alberto Crenshaw to [facility].? The patient is scheduled to be seen for therapy? ____x/week for ___ weeks. Please review, sign, date and return this plan of care INES. I agree with and certify that the following plan of care is medically necessary. Referring Physician Date Admitting Provider: Attending Provider: Jet Shields MD Referring Provider: *PT Outpatient Evaluation Start: 03/18/20 07:04 Freq: Status: Active Protocol: Document 04/11/20 07:16 [facility] (Rec: 04/11/20 08:09 [facility] [id number]) Outpatient Past Medical History Neurological History Hx Migraine Yes Cardiovascular History Hx Hypercholesterolemia Yes Respiratory History Hx Respiratory Disorders No Significant History Gastrointestinal History Hx Gastrointestinal Disorders No Significant History Genitourinary History Hx Genitourinary Disorders No Significant History Musculoskeletal History Hx Arthritis Yes Hx Back Injury Yes: dislocated vertabra Hx Crutches or Walker Use Yes: Will need crutches to go Query Text:If Yes, Enter Crutches, home with but no training Walker, or Both in the Comment needed. Hx Fractures Yes: left leg,right leg Hx Other Musculoskeletal Disorders Yes: left lateral menicus tear 2020 Hematological History Hx Hematological Disorders No Significant History Endocrine History Hx Diabetes Yes: PILLS HEENT History Hx Tonsillectomy Yes Integumentary History Hx Shingles Yes Reproductive History Hx Reproductive Disorders No Significant History Psychosocial History Hx Psychiatric Disorders No Significant History Pain History History of Any Previous or Ongoing No Significant History Instance of Pain Anesthesia History Hx Anesthesia Reactions No Significant History Other History Hx Other Surgeries Yes: BONE FRAGMENTS REMOVED FROM MY HEAD Evaluation Information Problem Diagnosis L knee arthroscopy Onset 04/09/19 Additional Evaluation Detail LEFS = 6% functionally declined Subjective Information patient reports he has no pain Query Text:As Reported By Patient/ in the L knee this morning. Family he reports to be able to return to work, he has to climb, turn, kneel, and twist. 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 he reports he has to get up and down from the ground/on his knee several times throughout the
--- NOTE | 2020-04-29 11:18 | PCPTNOTE ---
04/29/20 - patient has been called and reports he is returning to work on 05/05/20. as of this date, patient will be DC'd from skilled PT services and all progress towards goals will be taken from most recent evaluation/note. AVIS
== END 2020-04-11 11:28 | disposition home or self-care (01) ==
LOC: CHSPT 07:35
PROVIDERS: Visit Provider Orthopaedic Surgery
DX: Z98.890 Other specified postprocedural states (principal)
CPT/HCPCS: 97110; 97161; 97530

== ENCOUNTER 2020-06-11 07:09 | Outpatient (CLI) | payer OTHER, SELFPAY ==
--- NOTE | ~2020-06-11 | MR_ITS ---
EXAMINATION: MR lower leg LT wo con DATE: 06/11/2020 08:37 INDICATION: Left lower leg pain TECHNIQUE: Magnetic resonance imaging (MRI) of the left lower leg was performed without intravenous c ontrast. A marker was placed over the region of maximal pain. Sequences included axial, sagittal and coronal T1-weighted FSE and fluid sensitive FSE STIR. The contralateral right calf is included on th e coronal images. COMPARISON: Left lower leg radiographs dated 06/02/2020 FINDINGS: Partially visualized intramuscular complex fluid collection with heterogeneous increased T1 and T2 si gnal within the peripheral aspect of the proximal medial head of the gastrocnemius muscle. The increa sed T1 signal would be most consistent with a hematoma in the setting of a moderate grade muscle stra in (partial tear). This measures at least 1.5 cm in craniocaudal extent with the cephalad margin of t he fluid collection extending beyond the cephalad margin of the [id number]. The hematoma measures up to 5.8 x 2.6 cm in maximal transaxial dimensions. Remaining musculature in the left calf appears n ormal and relatively symmetric with the musculature in the contralateral right calf. No evident tear of the visualized portions of the tendons. The knee and ankle joints are not included within the fiel d-of-view. There is scattered likely reactive subcutaneous edema in the proximal and distal left calf . Bones are unremarkable with normal marrow signal throughout. IMPRESSION: 1. Intramuscular hematoma consistent with moderate grade strain of the medial head of the left gastro cnemius muscle. Reviewed, dictated and finalized at location B. IMPRESSION: 1. Intramuscular hematoma consistent with moderate grade strain of the medial h ead of the left gastrocnemius muscle.
== END 2020-06-11 07:10 | disposition home or self-care (01) ==
PROVIDERS: PCP Family Medicine; Visit Provider Orthopaedic Surgery
DX: S86.119A Strain of other muscle(s) and tendon(s) of posterior muscle group at lower leg level, unspecified leg, initial encounter (principal)
CPT/HCPCS: 73718

== ENCOUNTER 2020-09-08 07:14 | Emergency (ER) | payer OTHER, SELFPAY ==
--- NOTE | ~2020-09-08 | XR_ITS ---
EXAMINATION: XR chest 2V DATE: 09/08/2020 07:53 INDICATION: Chest pain TECHNIQUE: PA and lateral views of the chest are obtained. COMPARISON: 11/08/2019 FINDINGS: The lungs are free of acute opacities. There is no pleural effusion or pneumothorax. The ca rdiomediastinal silhouette is normal. There is mild thoracic spondylosis. IMPRESSION: 1. No acute cardiopulmonary abnormality. Reviewed, dictated and finalized at location A.
[2020-09-08 07:19] VITALS: PULSE 70; RESP 18; O2SAT 98
--- NOTE | 2020-09-08 07:31 | ECG_ITS ---
Measurements Intervals [place] Rate: 71 P: 3 MT: 132 QRS: 37 QRSD: 107 T: 54 QT: 387 QTc: 423 Interpretive Statements SINUS RHYTHM DELAYED PRECORDIAL R/S TRANSITION BORDERLINE ECG Electronically Signed On 09-08-2020 7:38:23 CDT by Main Rosa D.O.
[2020-09-08] MEDS: ASPIRIN 81 MG CHEWABLE TABLET 324 MG PO (07:38)
--- NOTE | 2020-09-08 07:51 | ED.CHESTPAIN ---
HPI - Chest Pain General Chief Complaint: Chest Pain Stated Complaint: CP Time Seen by Provider: 09/08/20 07:34 Source: patient Mode of arrival: ambulatory Limitations: no limitations History of Present Illness HPI narrative: Patient is a 50-year-old male complaining of chest pain, midsternal, pressure, 7 out of 10, radiating to his left arm started around 5:00 this morning. Patient denies any shortness of breath, abdominal pain, nausea, vomiting, diaphoresis, fever or chills. Related Data Allergies Allergy/AdvReac Type Severity Reaction Status Date / Time amoxicillin Allergy Severe Unresponsiv Verified 06/19/20 13:33 e Penicillins Allergy Severe bradycardia Verified 06/19/20 13:33 Review of Systems Review of Systems: All systems reviewed & are unremarkable except as noted in HPI and below Constitutional: Constitutional: Denies body ache(s), Denies chills, Denies excessive sweating, Denies fatigue, Denies fever(s), Denies headache(s), Denies lethargy, Denies malaise, Denies weakness and Denies weight loss Eyes: Eyes: Denies blurry vision, Denies change in vision and Denies loss of vision ENT: Denies dizziness, Denies ear discharge, Denies headache(s), Denies lip swelling, Denies epistaxis, Denies nasal congestion, Denies neck pain, Denies throat swelling and Denies tongue swelling Cardiovascular: Cardiovascular: Denies diaphoresis, Denies rapid heart rate, Denies edema, Denies irregular heart rhythm, Denies lightheadedness, Denies palpitations, Denies dyspnea and Denies dyspnea on exertion Respiratory: Respiratory: Denies chest congestion, Denies cough, Denies hemoptysis, Denies dyspnea and Denies dyspnea on exertion Gastrointestinal: Gastrointestinal: Denies abdominal pain, Denies melena, Denies hematochezia, Denies diarrhea, Denies nausea, Denies vomiting and Denies hematemesis Musculoskeletal: Musculoskeletal: Denies abnormal gait, Denies deformity, Denies joint swelling, Denies limited range of motion, Denies neck pain and Denies numbness Neurologic: Denies Abnormal speech present, Denies abnormal gait, Denies confusion, Denies dizziness, Denies headache(s), Denies focal weakness, Denies loss of vision, Denies numbness, Denies Other visual disturbances, Denies Sensory deficit (Neuro) and Denies weakness Psychiatric: Psychiatric: Denies confusion, Denies depression, Denies auditory hallucinations, Denies homicidal ideation and Denies suicidal ideation Endocrine: Endocrine: Denies cold intolerance, Denies excessive sweating, Denies fatigue, Denies heat intolerance and Denies palpitations Hematologic/Lymphatic: Hematologic/Lymphatic: Denies easy bleeding and Denies easy bruising Allergic/Immunologic: Allergic/Immunologic: Denies lip swelling, Denies throat swelling and Denies tongue swelling PMFSH Past Medical History Medical History Arthritis ASHD (arteriosclerotic heart disease) CAD (coronary artery disease) Diabetes mellitus HTN (hypertension) Hyperlipidemia Left knee pain NSTEMI (non-ST elevated myocardial infarction) Left anterior descending stent in August 2017 Tobacco use Surgical History Surgical History History of cardiac catheterization History of coronary angioplasty with insertion of stent History of orthopedic surgery Family History Family History Father Diabetes mellitus FH: heart attack Hypertension Mother Diabetes mellitus FH: heart attack Hypertension Other Heart disease Malignant neoplasm Social History Social History Social History: Patient is and currently lives at home with his and 2 young children. 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 He has a very stressful social situation. He states he has no friends or family that can help. He smokes 1-10 cig./day x 35 yrs. no alcohol or drug use. He nominates me
[2020-09-08 07:57] LABS: Basophils Percent Auto 0.5 % (0.2-1.2); Eosinophils Absolute Auto 0.2 K/mm3 (0-0.3); Hematocrit 46.7 % (42.0-52.0); Hemoglobin 15.3 g/dL (14.0-18.0); Immature Granulocyte Absolute 0.02 K/mm3 (0.00-0.031); Immature Granulocyte Percent A 0.2 % (0-0.5); Lymphocytes Absolute Auto 2.04 K/mm3 (0.9-3.2); Lymphocytes Percent Auto 25.1 % (18.3-44.2); Mean Corpuscular HGB Conc 32.8 g/dl (32-36); Mean Corpuscular Hemoglobin 29.1 pg (26-34); Mean Corpuscular Volume 88.8 fl (80-100); Mean Platelet Volume 11.3 fl (7.4-10.4); Monocytes Absolute Auto 0.9 K/mm3 (0.1-0.6); Monocytes Percent Auto 11.3 % (2.6-8.5); Neutrophils Absolute Auto 4.9 K/mm3 (1.3-6.7); Neutrophils Percent Auto 60.9 % (45.5-73.1); Platelet Count Result 183 k/mm3 (150-375); Red Blood Count 5.26 M/mm3 (4.6-6.20); Red Cell Distribution Width 13.6 % (11.5-14.5); White Blood Count 8.1 K/mm3 (4.5-10.0)
[2020-09-08 08:06] LABS: Anion Gap 10 mmol/L (8-16); Blood Urea Nitrogen 19 mg/dL (9-20); Carbon Dioxide 22 mmol/L (22-30); Chloride 104 mmol/L (98-107); Estimated CRCL calculation 95 ml/min; Estimated Glomerular Filt Rate > 60; Glucose 170 mg/dL (75-110); Sodium 136 mmol/L (137-145)
[2020-09-08 08:07] LABS: INR 0.9; Prothrombin Time 12.2 Seconds (11.1-14.7)
[2020-09-08 08:08] LABS: Partial Thromboplastin Time 24.8 SECONDS (22.3-36.8)
[2020-09-08 08:12] VITALS: BP 133/90; PULSE 66; RESP 13; TEMP 36.8; O2SAT 95
[2020-09-08 08:18] LABS: Troponin I < 0.012 ng/mL (0.000-0.034)
[2020-09-08] MEDS: NITROGLYCERIN SL 0.4 MG TABLET SUBLINGUAL (08:32)
== END 2020-09-08 09:10 | disposition left against medical advice (07) ==
PROVIDERS: Emergency Provider Emergency Medicine; PCP Family Medicine
DX: R07.9 Chest pain, unspecified (principal); I25.10 Atherosclerotic heart disease of native coronary artery without angina pectoris; E11.9 Type 2 diabetes mellitus without complications; I10 Essential (primary) hypertension; I25.2 Old myocardial infarction; F17.210 Nicotine dependence, cigarettes, uncomplicated
CPT/HCPCS: 36415; 71046; 80048; 84484; 85025; 85610; 85730; 93005; 99284; A9270

== ENCOUNTER 2022-03-08 04:41 | Observation (INO) | payer OTHER, SELFPAY ==
[2022-03-08] VITALS (17 sets, daily range): BP systolic 93–148; BP diastolic 72–83; PULSE 61–75; RESP 16–22; TEMP 36.1–36.7; O2SAT 20–99; BMI 31.1
--- NOTE | 2022-03-08 | ECHO_ITS ---
Patient Info Name: Alberto Crenshaw Age: 51 years : 1970 Gender: Male Ht: 74 in Wt: 242 lbs BSA: 2.42 m2 HR: 66 bpm BP: 93 / 74 mmHg Heart Rhythm: Sinus Rhythm Technical Quality: Good Exam Date: 03/08/2022 11:18 AM Exam Location: [facility] Patient Status: Inpatient Admit Date: 03/08/2022 Staff Ordering Physician: Sinai Kirk APRN Licensed Practical Nurse Instructor: Mireya Osman RDCS Attending Provider: Patti Monet DO Referring Physician: Reagan ARIZMENDI; Exam Type: CA echo dop color flow w con Study Info Indications R07.9 - Chest pain, unspecified Complete two-dimensional, color flow and Doppler transthoracic echocardiogram is performed with contrast to opacify the left ventricle and to improve the deliniation of the left ventricle endocardial borders. Contrast/Agitated Saline Contrast/Ag. Saline: Definity Amount: 3.00 ml Administered By: Mireya Osman RDCS Existing IV Access: Yes IV Access Condition: patent with no signs of infiltration Summary 1. Normal left ventricular size and systolic function without apparent ischemic wall motion abnormality. 2. Mildly sclerotic aortic valve without stenosis. Left Ventricle Left ventricular chamber dimension is normal. Left ventricular systolic function is normal, estimated at 50-55%. The left ventricular diastolic function is normal. Right Ventricle Right ventricular chamber dimension is normal. Left Atria Left atrial chamber dimension is normal. Right Atria Right atrial chamber dimension is normal. Aortic Valve The aortic valve is trileaflet. There is mild aortic valve sclerosis. Pulmonic Valve The pulmonic valve is normal. Mitral Valve The mitral valve has normal leaflets. Tricuspid Valve The tricuspid valve leaflets are normal. Pericardium/Pleural The pericardium appears normal. Aorta The aortic root size at the sinus of Valsalva is normal. Left Ventricular Outflow Tract Name Value Normal LVOT 2D LVOT Diameter 2.16 cm LVOT Doppler LVOT Peak Gradient 4 mmHg LVOT Mean Gradient 2 mmHg LVOT VTI 19.93 cm LVOT VTI/AV VTI Ratio 0.89 LVOT Stroke Volume 72.85 ml LVOT CO 4.63 l/min LVOT CI 1.91 L/min/m2 Pulmonic Valve Name Value Normal RVOT Doppler RVOT Peak Gradient 1 mmHg PV Doppler PV Peak Gradient 2 mmHg Mitral Valve Name Value Normal
--- NOTE | ~2022-03-08 | XR_ITS ---
EXAMINATION: XR chest 2V DATE: 03/08/2022 05:30 INDICATION: Mid chest pain. TECHNIQUE: Frontal and lateral views of the chest were obtained. COMPARISON: Chest 2 views 09/08/2020 FINDINGS: The chest demonstrates clear lungs without pneumonia, pleural effusion, or pneumothorax. Th e heart size is normal. There is mild chronic anterior wedging of multiple lower thoracic vertebral b odies. IMPRESSION: 1. No acute cardiopulmonary disease. Reviewed, dictated and finalized at location A. 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
--- NOTE | ~2022-03-08 | US_ITS ---
EXAMINATION: US abdomen limited DATE: 03/09/2022 12:09 INDICATION: Right upper quadrant abdominal pain. TECHNIQUE: Multiple grayscale and Doppler ultrasound images of the abdomen were obtained. COMPARISON: None FINDINGS: The visualized portions of the head, body, and tail of the pancreas are normal. There is di ffuse hepatic steatosis with focal sparing in the gallbladder fossa. There is normal flow in main por jassi vein. The gallbladder is normal in size. No gallstones or gallbladder wall thickening. There is n o sonographic Joseph sign. The common duct is normal and measures 4 mm . IMPRESSION: 1. Diffuse hepatic steatosis. Reviewed, dictated and finalized at location A. PAINTER
--- NOTE | ~2022-03-08 | NM_ITS ---
NUCLEAR MEDICINE CARDIAC GATED STRESS TEST: HISTORY: Chest pain. TECHNIQUE: Rest images were obtained following intravenous administration of 9.8 mCi Tc99m Tetrofosmi n. The patient was infused intravenously with Lexiscan (regadenoson). Then, third 2.0 mCi Tc99m Tetro fosmin was administered intravenously, and stress images were obtained. Data was reconstructed into s hort axis and horizontal and vertical long axis SPECT images. Gated SPECT images were also obtained. FINDINGS: There are no significant perfusion defects seen on the stress or rest SPECT images. There is normal left ventricular wall motion. Left ventricular ejection fraction is 58%. IMPRESSION: No significant abnormality seen. Ejection fraction is 58%. Reviewed, dictated and finalized at location . 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
--- NOTE | 2022-03-08 04:43 | ECG_ITS ---
Measurements Intervals [place] Rate: 79 P: -11 MA: 117 QRS: 18 QRSD: 104 T: 63 QT: 369 QTc: 425 Interpretive Statements SINUS RHYTHM WITH SHORT MA INTERVAL BORDERLINE ECG COMPARED TO ECG 09/08/2020 07:21:04 NO SIGNIFICANT CHANGES Electronically Signed On 03-08-2022 11:20:37 CARDIAC CATH TECHNICIAN by Main Rosa D.O.
--- NOTE | 2022-03-08 04:51 | ED.CHESTPAIN ---
HPI - Chest Pain General Chief Complaint: Chest Pain Stated Complaint: chest pain Time Seen by Provider: 03/08/22 04:51 Source: RN notes reviewed History of Present Illness HPI narrative: Patient presents emergency department from home for chest pain. Patient states that he awoke approximately 3:30 AM with midsternal chest pain pain described as a pressure nature and does not radiate. Reports associated shortness of breath denies any fevers or chills denies any abdominal pain nausea vomiting or diarrhea. Patient does state he has a history of a stent placed in 2018 he is followed by Dr. Webb. States nothing makes the pain better or worse. Patient did take a nitro and aspirin prior to arrival states he did help with his pain Related Data Allergies Allergy/AdvReac Type Severity Reaction Status Date / Time amoxicillin Allergy Severe Unresponsiv Verified 10/21/20 09:40 e Penicillins Allergy Severe bradycardia Verified 10/21/20 09:40 Review of Systems Review of Systems: Gen.: Denies fevers or chills ENT: Denies congestion Respiratory: Reports shortness of breath CV: See HPI GI: Denies abdominal pain nausea, emesis or diarrhea Musculoskeletal: Denies back pain or muscle pain Neuro: Denies numbness, tingling, weakness or focal weakness Skin: Denies rash Except as documented, all other systems reviewed and negative [facility] Past Medical History Medical History Arthritis ASHD (arteriosclerotic heart disease) CAD (coronary artery disease) Diabetes mellitus HTN (hypertension) Hyperlipidemia Left knee pain NSTEMI (non-ST elevated myocardial infarction) Left anterior descending stent in August 2017 Tobacco use Surgical History Surgical History (Updated 10/21/20 @ 10:02 by Yelitza Neil MA) History of cardiac catheterization History of coronary angioplasty with insertion of stent History of orthopedic surgery Left knee arthroscopy 02/15/20 Family History Family History Father Diabetes mellitus FH: heart attack Hypertension Mother Diabetes mellitus FH: heart attack Hypertension Other Heart disease Malignant neoplasm Social History Social History Social History: Patient is and currently lives at home with his and 2 young children. 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 He has a very stressful social situation. He states he has no friends or family that can help. He smokes 1-10 cig./day x 35 yrs. no alcohol or drug use. He nominates his father to be the individual to make medical decisions for him if he is not able ([phone]). He specifically states he does not want his to make decisons for him. He was in the [employer] x 17 yrs. Smoking packs per day: 0.5 Smoking cigarettes per day: 10.0 Years smoked: 30 Smoking pack-years: 15.00 Tobacco type: cigarettes Second hand tobacco smoke exposure: Yes Alcohol intake: former Substance use: never Gender identity (if verbalized by the patient): Male Spiritual care concerns: No Exam Narrative: APPEARANCE: No acute distress, nontoxic, resting in bed EYES: EOMI HEENT: Normocephalic, atraumatic, OMM RESPIRATORY: No respiratory distress Clear to auscultation bilaterally with no rhonchi wheezing or rales. CARDIOVASCULAR: Regular rate and rhythm without murmurs rubs or gallops. ABDOMINAL: Soft, nontender, nondistended, no rebound or guarding MUSCULOSKELETAl: Moves all extremities. No clubbing, cyanosis or edema. NEURO: Awake and alert. Following commands, speech normal, no focal deficits SKIN:: Warm, dry. No rashes lesions or abrasions PSYCHIATRIC: Normal affect/mood, Course Course Emergency Course: Discussed with Dr. Webb for cardiology presentation work-up agrees with consult Discussed with Dr. Rogers hospitalist agrees with admission Discussed with patient and family results of workup a
[2022-03-08] MEDS: ASPIRIN 81 MG CHEWABLE TABLET 324 MG PO (05:03)
[2022-03-08] MEDS: IPRATROPIUM BR 0.02% INH SOLN 0.5 MG/2.5 ML VIAL INHALATION (05:07)
[2022-03-08] MEDS: ALBUTEROL SULFATE NEB 2.5 MG/3 ML INH 5 MG INHALATION (05:07)
[2022-03-08 05:17] LABS: Basophils Percent Auto 0.3 % (0.2-1.2); Eosinophils Absolute Auto 0.2 K/mm3 (0-0.3); Hemoglobin 15.2 g/dL (14.0-18.0); Immature Granulocyte Absolute 0.04 K/mm3 (0.00-0.031); Immature Granulocyte Percent A 0.4 % (0-0.5); Lymphocytes Absolute Auto 3.21 K/mm3 (0.9-3.2); Lymphocytes Percent Auto 34.1 % (18.3-44.2); Mean Corpuscular HGB Conc 32.3 g/dl (32-36); Mean Corpuscular Hemoglobin 29.3 pg (26-34); Mean Corpuscular Volume 90.7 fl (80-100); Mean Platelet Volume 10.5 fl (7.4-10.4); Monocytes Percent Auto 10.5 % (2.6-8.5); Neutrophils Absolute Auto 4.9 K/mm3 (1.3-6.7); Neutrophils Percent Auto 52.7 % (45.5-73.1); Platelet Count Result 219 k/mm3 (150-375); Red Blood Count 5.18 M/mm3 (4.6-6.20); Red Cell Distribution Width 13.9 % (11.5-14.5); White Blood Count 9.4 K/mm3 (4.5-10.0)
[2022-03-08 05:30] LABS: Alanine Aminotransferase 20 U/L (6-50); Alkaline Phosphatase 74 U/L (38-126); Anion Gap 5 mmol/L (8-16); Aspartate Amino Transferase 19 U/L (17-59); Bilirubin,Total 0.3 mg/dL (0.2-1.3); Blood Urea Nitrogen 20 mg/dL (9-20); Calcium 8.6 mg/dL (8.4-10.2); Carbon Dioxide 26 mmol/L (22-30); Chloride 106 mmol/L (98-107); Estimated CRCL calculation 92 ml/min; Estimated Glomerular Filt Rate > 60; Glucose 158 mg/dL (65-110); Lipase 170 U/L (23-300); Potassium 4.3 mmol/L (3.4-5.0); Sodium 137 mmol/L (137-145)
[2022-03-08 05:31] LABS: INR 0.9; Prothrombin Time 12.1 Seconds (11.1-14.7)
[2022-03-08 05:32] LABS: Partial Thromboplastin Time 27.6 SECONDS (22.3-36.8)
[2022-03-08 05:41] LABS: Troponin I < 0.012 ng/mL (0.000-0.034)
[2022-03-08 05:52] LABS: Influenza A QL RT-PCR Negative (Negative); Influenza B QL RT-PCR Negative (Negative); RSV RNA, RT-PCR Negative (Negative); SARS-CoV-2 RNA PCR Negative
--- NOTE | 2022-03-08 08:01 | PM.IMHP ---
H&P: HPI History of Present Illness Date/Time: 03/08/22 08:01 Chief Complaint: chest pain Narrative: Alberto Crenshaw is a 51 yo male with CAD s/p LAD stent in 2017 and first OM stent in 2019, non-insulin dependent diabetes, hypertension, and tobacco dependence. He presented to the ED, from home, for evaluation of substernal chest pain that woke him from sleep at 0330. The patient was sharp and associated with numbness to half of his left arm. The pain improved when he took a nitroglycerine tablet at home. No c/o jaw, neck or midscapular pain. He denies diaphoresis, dyspnea, abdominal pain, nausea, vomiting, fever, chills, palpitations, or dizziness. He denies sick contacts. He reports compliance with his medications, however, his admitting nurse noted his medication bottles were mostly full and last filled in 04/2021. In the ED, vitals were stable and SpO2 91-96% RA. EKG showed sinus rhythm with short CO interval without significant changes. Chest x-ray was negative for acute disease. Initial troponin was <0.012. CBC, CMP and coagulation panel were unremarkable. Influenza A/B, COVID19 and RSV PCR were negative. He was admitted for ACS work-up and Cardiology evaluation. Review of Systems Review of Systems: All systems reviewed & are unremarkable except as noted in HPI and below Constitutional: Constitutional: Reports as per HPI Eyes: Eyes: Reports as per HPI ENT: Reports system reviewed and no additional complaints, except as documented Cardiovascular: Cardiovascular: Reports as per HPI Respiratory: Respiratory: Reports cough (chronic) and Reports snoring Gastrointestinal: Gastrointestinal: Reports as per HPI Genitourinary: Genitourinary: Reports no additional male genitourinary complaints Musculoskeletal: Musculoskeletal: Reports no additional musculoskeletal complaints Integumentary/Breasts: Skin/Breast: Reports other (Tattoos) Neurologic: Reports system reviewed and no additional complaints, except as documented and Reports burning sensations (both feet) Psychiatric: Psychiatric: Reports no additional psychiatric complaints Endocrine: Endocrine: Reports no additional endocrine complaints Hematologic/Lymphatic: Hematologic/Lymphatic: Reports no additional hematologic/lymphatic complaints Allergic/Immunologic: Allergic/Immunologic: Reports no additional allergic/immunologic complaints PMFSH Past Medical History Medical History Arthritis CAD (coronary artery disease) Diabetes mellitus HTN (hypertension) Hyperlipidemia NSTEMI (non-ST elevated myocardial infarction) Left anterior descending stent in August 2017 First OM stent in July 2019 Tobacco use Surgical History Surgical History History of cardiac catheterization History of coronary angioplasty with insertion of stent History of orthopedic surgery Left knee arthroscopy 02/15/20 Family History Family History Father Diabetes mellitus FH: heart attack Hypertension Mother Diabetes mellitus FH: heart attack Hypertension Other Heart disease Malignant neoplasm Social History Social History (Updated 03/08/22 @ 15:56 by Sinai Kirk APRN) Social History: Patient is . He nominates his father to be the individual to make medical decisions for him if he is not able ([phone]). Smoking packs per day: 2 Smoking cigarettes per day: 40.0 Years smoked: 41 Smoking pack-years: 82.00 Smoking status: Current every day smoker Tobacco type: cigarettes Second hand tobacco smoke exposure: Yes Alcohol intake: never Substance use: never Lack of Transportation: No Lack of Food: Never True Current Housing: I Have Housing Concerned About Future Housing: No Difficulty Paying Gas/Electric Bills: No Difficulty Paying for Meds: No Currently Unemployed: YES Education: High School Diploma/GED Diffi
[2022-03-08 08:31] LABS: Cholesterol 170 mg/dL (0-200); HDL Direct 38 mg/dL; Triglycerides 252 mg/dL (<150)
[2022-03-08 08:41] LABS: LDL Cholesterol Direct 87 mg/dL
[2022-03-08 08:48] LABS: Hemoglobin A1C 7.9 % (<5.7)
--- NOTE | 2022-03-08 08:56 | ADMGEN ---
This patient, Alberto Crenshaw, was admitted to IMU Room 213-01. Patient/family oriented to hospital policies and general routines including ID bracelet, bed and alarms, visiting hours, pain management, procedures, bathroom and other care routines, personal items, smoking policy, room service/diet, and visiting hours. Information on how to activate the Rapid Response Team has been discussed. Patient/Family are encouraged to report perceived risks to care and to ask questions if they do not understand what they are told or what they should do.
--- NOTE | 2022-03-08 09:15 | PM.CNCAR ---
Assessment and Plan Assessment and plan (1) Chest pain: Code(s): R07.9 - Chest pain, unspecified Status: Acute (2) CAD (coronary artery disease): Code(s): I25.10 - Atherosclerotic heart disease of [place] coronary artery without angina pectoris Status: Chronic Plan This is a 51-year-old man with known coronary artery disease, PCI of the LAD in 2018 in of the OM circumflex in 2020. He has been doing well was last seen in the office in July of last year, failed the appointment to see me last month. He has continued to smoke cigarettes. He has some intermittent chest pain awakening him from sleep in the middle of the night and a couple of brief episodes since then by history this appears to be pain that is very atypical of and not suggestive of myocardial ischemia. I will follow his ECGs and troponins and determine course of action. If his troponins remain negative expect to proceed with nuclear stress testing tomorrow for further evaluation of this. Obviously if his troponin rises and a follow-up angiogram will be recommended. Phil Webb MD [facility] History of Present Illness History of Present Illness Consult date/time: 03/08/22 09:15 Consult reason: chest pain Reason For Visit: Chest Pain Narrative: This is a 51-year-old patient known to me with coronary artery disease admitted this morning after being seen in the emergency room after an episode of chest pain that occurred at home. Patient states he was in his usual state of health when this morning at about 3:00 a.m. he was awakened with chest pain. He describes this as a central sharp knife-like pain that be weight awakened from sleep it was not associated with any other symptoms such as shortness of breath diaphoresis nausea or vomiting. There was no radiation to any other location. The discomfort obviously created concern because he is known to have coronary disease he called a female friend who came over to his home. Before she got there the pain had resolved. It is very difficult for him to answer questions about how long he was having symptoms. Since then he states he has had a couple of more episodes of brief self-limited sharp pain that he is describing above. He was seen in the emergency room I am told that his electrocardiogram looked okay but I do not see it on the electronic record for my personal review. He has 1 set of troponins that are done which are also normal. He appears to be comfortable in the IMU and offers no other complaints at this time. The patient is known to have coronary artery disease and presented with acute coronary syndrome in August of 2017. At that time he did have significantly elevated troponins and was given the diagnosis of non ST elevation PR and brought to the cardiac catheterization lab where he had a high-grade subtotal stenosis identified in the mid LAD which was treated with 3 x 15 mm drug-eluting stent with a good anatomical result. He did not have any significant circumflex or right coronary disease at that time. He came back to the hospital here in July of 2019 a couple of years later again with acute coronary syndrome angiographically was evaluated by 1 of my partners and found to have a high-grade stenosis in the OM branch of the circumflex which was treated but the 2.5 x 13 mm drug-eluting stent. Following that he has had inconsistent follow-up in the office. Unfortunately he has continued to smoke cigarettes although he does cut down from his previous habit of a pack per day. He did come into the office for an appointment to see me in July of 2021 at which time he was doing well. He was only taking aspirin and atorvastatin at that time. His ARB and beta-blockers were stopped because his LV function had normalized and he was complaining of erectile dysfunction. He does not have any other complaints at this time and seems to be doing well for the moment. Review of Systems Constitutional: Constitutional: Reports
[2022-03-08 10:42] LABS: Troponin I < 0.012 ng/mL (0.000-0.034)
[2022-03-08 11:30] LABS: Troponin I < 0.012 ng/mL (0.000-0.034)
[2022-03-08] MEDS: PERFLUTREN LIPID MICROSPHERES 1.5 ML VIAL DILUTED TO 10 ML TOTAL VOLUME IV PUSH (11:35)
[2022-03-08 12:16] LABS: Glucose Point of Care 140 mg/dl (65-105)
[2022-03-08 18:21] LABS: Glucose Point of Care 187 mg/dl (65-105)
[2022-03-08 20:49] LABS: Glucose Point of Care 187 mg/dl (65-105)
[2022-03-09] VITALS (9 sets, daily range): BP systolic 120–129; BP diastolic 83; PULSE 59–73; RESP 16–20; TEMP 36.4–36.6; O2SAT 96–97
--- NOTE | 2022-03-09 | EST_ITS ---
Patient Info Name: Alberto Crenshaw Age: 51 years : 1970 Gender: Male Ht: 74 in Wt: 242 lbs BSA: 2.42 m2 HR: 64 bpm BP: 128 / 90 mmHg Heart Rhythm: Sinus Rhythm Exam Date: 03/09/2022 12:35 PM Exam Location: [facility] Stress Patient Status: Inpatient Admit Date: 03/08/2022 Staff Ordering Physician: Priscilla Miranda Attending Provider: Patti Monet DO Exercise Technologist: Nika Crenshaw CT Nurse: PRISCILLA MIRANDA Exam Type: CA stress dianna w NM Study Info Indications R07.9 - Chest pain, unspecified A regadenoson stress test was performed. Summary 1. No abnormal ST/T wave changes diagnostic of ischemia with Lexiscan. 2. Please correlate with nuclear medicine images, reported separately. Protocol: Lexiscan Stress ECG Details Stage: REST Duration (min): 1 min : 31 sec HR (bpm): 66 SBP (mmHg): 128 DBP (mmHg): 90 Stage: REST Duration (min): 7 min : 40 sec HR (bpm): 67 SBP (mmHg): 128 DBP (mmHg): 90 Stage: STAGE 1 Duration (min): 1 min : 0 sec HR (bpm): --- SBP (mmHg): 108 DBP (mmHg): 79 Stage: RECOVERY Duration (min): 1 min : 0 sec HR (bpm): 95 SBP (mmHg): 108 DBP (mmHg): 79 Stage: RECOVERY Duration (min): 2 min : 0 sec HR (bpm): 88 SBP (mmHg): 108 DBP (mmHg): 79 Stage: RECOVERY Duration (min): 3 min : 0 sec HR (bpm): 82 SBP (mmHg): 137 DBP (mmHg): 83 Stage: RECOVERY Duration (min): 3 min : 5 sec HR (bpm): 86 SBP (mmHg): 137 DBP (mmHg): 83 Rest HR: 67 bpm Peak HR: 98 bpm Rest Sys BP: 128 mmHg Peak Sys BP: 137 mmHg Max Pred HR: 168 bpm % Max Pred HR: 58 % Target HR: 143 bpm Max RPP: 13,426 bpm*mmHg Total Time: 1 min : 0 sec Rest Cates BP: 90 mmHg Peak Cates BP: 83 mmHg Total Dose: 0.4 mg Resting ECG Sinus rhythm. Stress ECG Sinus rhythm. No abnormal ST/T wave changes diagnostic of ischemia with Lexiscan. Report Signatures
[2022-03-09] MEDS: NITROGLYCERIN SL 0.4 MG TABLET SUBLINGUAL (03:15)
[2022-03-09 04:49] LABS: Anion Gap 5 mmol/L (8-16); Blood Urea Nitrogen 18 mg/dL (9-20); Calcium 8.7 mg/dL (8.4-10.2); Carbon Dioxide 26 mmol/L (22-30); Chloride 101 mmol/L (98-107); Estimated CRCL calculation 92 ml/min; Estimated Glomerular Filt Rate > 60; Glucose 127 mg/dL (65-110); Potassium 4.3 mmol/L (3.4-5.0); Sodium 132 mmol/L (137-145)
[2022-03-09] MEDS: ASPIRIN 81 MG CHEWABLE TABLET PO (07:46)
[2022-03-09] MEDS: ATORVASTATIN 40 MG TABLET PO (07:46)
[2022-03-09] MEDS: PANTOPRAZOLE SODIUM IV 40 MG VIAL IV PUSH (07:47)
[2022-03-09 08:33] LABS: Glucose Point of Care 142 mg/dl (65-105)
--- NOTE | 2022-03-09 13:31 | PM.PNCARD ---
Progress Note: A&P Assessment and Plan (1) Chest pain: Code(s): R07.9 - Chest pain, unspecified Status: Acute Assessment and Plan: Negative serial troponin levels and EKG without any ischemic changes. Underwent lexiscan stress test today that did not show any perfusion defects, EF 58%. No further cardiac workup indicated or recommended at this time. Continue aggressive risk factor modification for CAD. (2) CAD (coronary artery disease): Qualifiers: Coronary Disease-Associated Artery/Lesion type: [place] artery [place] vs. transplanted heart: [place] heart Code(s): I25.10 - Atherosclerotic heart disease of [place] coronary artery without angina pectoris Status: Chronic Assessment and Plan: History of CAD with PCI to the LAD in 2018 and of the OM in 2020. Continue ASA, statin. Continue aggressive risk factor modification for CAD, Subjective Date/time seen: 03/09/22 13:31 Cardiology follow up for chest pain Interval history: Feeling well this morning and is without complaint. He has no chest pain or shortness of breath today. Review of Systems Constitutional: Constitutional: Reports no additional constitutional complaints Eyes: Eyes: Reports no additional eye complaints ENT: Reports system reviewed and no additional complaints, except as documented Cardiovascular: Cardiovascular: Reports as per HPI Respiratory: Respiratory: Reports no additional respiratory complaints Gastrointestinal: Gastrointestinal: Reports no additional gastrointestinal complaints Musculoskeletal: Musculoskeletal: Reports no additional musculoskeletal complaints Integumentary/Breasts: Skin/Breast: Reports system reviewed and no additional complaints, except as docu Neurologic: Reports system reviewed and no additional complaints, except as documented Endocrine: Endocrine: Reports no additional endocrine complaints Hematologic/Lymphatic: Hematologic/Lymphatic: Reports no additional hematologic/lymphatic complaints Allergic/Immunologic: Allergic/Immunologic: Reports no additional allergic/immunologic complaints Exam Const: General: comfortable and no acute distress Other: Well-developed well-nourished white male comfortable no distress HENMT: Mouth: Yes moist mucous membranes Eyes: Sclera: sclerae normal Pupils: Equal, round and reactive pupils present Neck: Neck: supple and no JVD Other: Carotid pulses are intact bilaterally without any bruits Resp: Effort & Inspection: normal respiratory effort Auscultation: clear to auscultation bilaterally Other: Breath sounds are essentially clear but diminished bilaterally Cardio: Rate: regular rate Rhythm: regular rhythm Other: No audible murmur gallop or rub GI: Auscultation: normal bowel sounds Skin: General skin exam: normal color Neuro: Cranial nerves: Yes Equal, round and reactive pupils present Other: Alert and oriented Extrem: Other: no edema adequate distal pulses Objective Data Vital Signs Vital Signs: Vital Signs - 24 hr 03/08/22 16:00 03/08/22 14:00 03/08/22 16:00 Temperature 36.5 C Pulse Rate 64 71 66 Respiratory Rate 16 Blood Pressure 114/75 Pulse Oximetry 95 Oxygen Delivery 03/08/22 16:00 03/08/22 18:00 03/08/22 20:00 Temperature 36.7 C Pulse Rate 67 64 Respiratory Rate 20 Blood Pressure 148/82 H Pulse Oximetry 99 20 L Oxygen Delivery Room Air 03/08/22 22:58 03/08/22 20:00 03/08/22 20:00 Temperature 36.7 C Pulse Rate 71 65 65 Respiratory Rate 20 20 Blood Pressure 137/80 Pulse Oximetry 96 96 Oxygen Delivery Room Air 03/08/22 22:00 03/08/22 23:10 03/08/22 23:10 Temperature Pulse Rate 72 68 68 Respiratory Rate 20 Blood Pressure Pulse Oximetry 96 Oxygen Delivery Room Air 03/09/22 02:00 03/09/22 03:46 03/09/22 03:46 Temperature Pulse Rate 66 64 64 Respiratory Rate 20 Blood Pressure Pulse Oximetry 96 Oxygen Del
[2022-03-09] MEDS: UMECLIDINIUM BROMIDE 62.5 MCG ELLIPTA 1 PUFF INHALATION (14:51)
--- NOTE | 2022-03-09 14:53 | PC.NURSE ---
Pt is cleared by cardiology per Niru Suarez (cardiology).
--- NOTE | 2022-03-09 15:08 | PM.DS ---
DS: Admitting Diagnosis Discharge Date 03/09/2022 1527 Admitting Diagnosis chest pain DS: Discharge Diagnosis Discharge Diagnosis (1) Chest pain: Qualifiers: Chest pain type: precordial pain Qualified Code(s): R07.2 - Precordial pain Code(s): R07.9 - Chest pain, unspecified Status: Acute Assessment and Plan: Patient presented to the ED with c/o substernal chest pain. He has h/o CAD with prior stents to LAD and first OM. Patient is 51 yo with h/o DM, HTN, HLD and tobacco dependence. Admitted to IMU Monitored telemetry without ectopy Given full-strength aspirin in ED. Cardiology consulted Trended troponins- 0.012 x3 lipid panel LDL 87, HDL 38, triglycerides 252 and A1c 7.9% PRN nitroglycerin SL and PRN morphine for chest pain Continued asa 81 mg daily, Imdur 30 mg daily, metoprolol tartrate 50 mg BID, lipitor 40 mg daily, and losartan 25 mg daily. He reported compliance with medications, however, pill bottles noted his last refill was 04/2021 suggesting he has not been taking them. All medications refilled at discharge. Heart healthy diet discussed. [place] scan negative 03/09/22 pain more right-sided. Non-reproducible with palpation. RUQ pain mild noted. Expiratory wheeze noted on exam. Abd US showed hepatic steatosis. Anoro Ellipta started for wheezing and presumed underlying COPD. Outpatient PFTs beneficial. (2) CAD (coronary artery disease): Qualifiers: Coronary Disease-Associated Artery/Lesion type: [place] artery [place] vs. transplanted heart: [place] heart Code(s): I25.10 - Atherosclerotic heart disease of [place] coronary artery without angina pectoris Status: Chronic Assessment and Plan: As above (3) Hyperlipidemia: Qualifiers: Hyperlipidemia type: unspecified Qualified Code(s): E78.5 - Hyperlipidemia, unspecified Code(s): E78.5 - Hyperlipidemia, unspecified Status: Chronic Assessment and Plan: lipid panel- LDL 87, however, it appeared he was not taking medications and continued statin (4) Tobacco use: Code(s): Z72.0 - Tobacco use Status: Chronic Assessment and Plan: Chronic, 82 pack-year smoking history. counseled to quit (5) Diabetes mellitus: Qualifiers: Diabetes mellitus complication status: without complication Diabetes mellitus terminal clerk insulin use: without terminal clerk use Diabetes mellitus type: type 2 Qualified Code(s): E11.9 - Type 2 diabetes mellitus without complications Code(s): E11.9 - Type 2 diabetes mellitus without complications Status: Chronic Assessment and Plan: Chronic, A1c 7.9% Held metformin and pioglitazone while inpatient. Increased metformin gradually outpatient to 1000 mg BID Accu-checks Q6 while NPO with novolog sliding scale insulin Hypoglycemia protocol Counseled on healthy diet and medication compliance. (6) HTN (hypertension): Qualifiers: Hypertension type: essential hypertension Qualified Code(s): I10 - Essential (primary) hypertension Code(s): I10 - Essential (primary) hypertension Status: Chronic Assessment and Plan: Chronic, Monitor vital signs Continue metoprolol tartrate 50 mg BID and losartan 25 mg daily. (7) Hepatic steatosis: Code(s): K76.0 - Fatty (change of) liver, not elsewhere classified Status: Chronic Assessment and Plan: Noted on US. Counseled on low fat diet. Medication compliance Alcohol abstinence. Weight loss DS: Summary Hospital Course Reason for hospitalization: Chest pain Hospital Course: Alberto Crenshaw is a 51 yo male with CAD s/p LAD stent in 2018 and first OM stent in 2019, non-insulin dependent diabetes, hypertension, and tobacco dependence. He presented to the ED, from home, for evaluation of substernal chest pain that woke him from sleep at 0330 on the day of admission. The pain was sharp and associated with numbness to h
[2022-03-09] MEDS: ISOSORBIDE MONONITRATE 30 MG TAB.ER.24H PO (15:29)
[2022-03-09] MEDS: LOSARTAN POTASSIUM 25 MG TABLET PO (15:29)
[2022-03-09] MEDS: guaiFENesin 12 HR 600 MG TABCR 1200 MG PO (15:30)
== END 2022-03-09 15:58 | disposition home or self-care (01) ==
LOC: ANHED 06:37 → ANHIMU 23:09
PROVIDERS: Nurse Practitioner Family; Admitting Provider Student in an Organized Health Care Education/Training Program; Emergency Provider Emergency Medicine; PCP Family Medicine; Visit Provider Student in an Organized Health Care Education/Training Program
DX: R07.2 Precordial pain (principal); R06.02 Shortness of breath; I10 Essential (primary) hypertension; E78.5 Hyperlipidemia, unspecified; E11.9 Type 2 diabetes mellitus without complications; I25.2 Old myocardial infarction; K76.0 Fatty (change of) liver, not elsewhere classified; Z95.5 Presence of coronary angioplasty implant and graft; F17.210 Nicotine dependence, cigarettes, uncomplicated; Z79.01 Long term (current) use of anticoagulants; Z79.82 Long term (current) use of aspirin; Z79.84 Long term (current) use of oral hypoglycemic drugs; Z20.822 Contact with and (suspected) exposure to COVID-19
CPT/HCPCS: 36415; 71046; 76705; 78452; 80048; 80053; 80061; 82948; 83036; 83690; 84484; 85025; 85610; 85730; 87637; 93005; 93017; 94640; 96374; 96375; 99285; A9270; A9502; C8929; C9113; G0378; J2785; Q9957

== ENCOUNTER 2022-07-24 09:33 | Emergency (ER) | payer OTHER, SELFPAY ==
[2022-07-24 09:43] VITALS: BP 137/85; PULSE 69; RESP 18; TEMP 36.2; O2SAT 99
--- NOTE | 2022-07-24 10:01 | ED.EYEPROB ---
HPI - Eye Problem General Chief complaint: Eye Problems Stated complaint: Lt Eye Irrritation Time Seen by Provider: 07/24/22 09:47 Source: patient and RN notes reviewed Mode of arrival: ambulatory Limitations: no limitations History of Present Illness HPI Narrative: Patient presents today complaining of left eye irritation. Approximately 1.5 hours prior to arrival, patient was at work when he fell into a hole and his face fell into a flooded basement that was flooded with work chemicals such as motor rule and Diesel feel. Some of this got into his left eye. He copiously flushed his left eye with eye wash and came in for evaluation. Denies photophobia or vision changes. He does not wear contacts or glasses. Related Data Allergies Allergy/AdvReac Type Severity Reaction Status Date / Time amoxicillin Allergy Severe Unresponsiv Verified 07/24/22 09:34 e Penicillins Allergy Severe bradycardia Verified 07/24/22 09:34 Review of Systems Review of Systems: CONSTITUTIONAL: Denies body aches, fever, chills, or sweats. EYES: Denies visual changes, redness, or discharge.+ left eye irritation ENT: Denies rhinorrhea, congestion, sore throat, or otalgia. CARDIOVASCULAR: Denies chest pain, palpitations, or edema. RESPIRATORY: Denies cough or dyspnea. GASTROINTESTINAL: Denies abdominal pain, nausea, vomiting, or diarrhea. GENITOURINARY: Denies dysuria or hematuria. SKIN: Denies rash, itching, or wounds. MUSCULOSKELETAL: Denies back pain, joint pain, or myalgia. NEUROLOGIC: Denies headache, numbness, tingling, or weakness. PSYCH: Denies depression or anxiety. [facility] Past Medical History Medical History Arthritis CAD (coronary artery disease) Diabetes mellitus HTN (hypertension) Hyperlipidemia NSTEMI (non-ST elevated myocardial infarction) Left anterior descending stent in August 2017 First OM stent in July 2019 Tobacco use Surgical History Surgical History History of cardiac catheterization History of coronary angioplasty with insertion of stent History of orthopedic surgery Left knee arthroscopy 02/15/20 Family History Family History Father Diabetes mellitus FH: heart attack Hypertension Mother Diabetes mellitus FH: heart attack Hypertension Other Heart disease Malignant neoplasm Social History Social History Social History: Patient is . He nominates his father to be the individual to make medical decisions for him if he is not able ([phone]). Smoking packs per day: 2 Smoking cigarettes per day: 40.0 Years smoked: 41 Smoking pack-years: 82.00 Smoking status: Current every day smoker Tobacco type: cigarettes Second hand tobacco smoke exposure: Yes Alcohol intake: never Substance use: never Lack of Transportation: No Lack of Food: Never True Current Housing: I Have Housing Concerned About Future Housing: No Difficulty Paying Gas/Electric Bills: No Difficulty Paying for Meds: No Currently Unemployed: YES Education: High School Diploma/GED Difficulty w/ Childcare or Family Care: No Living arrangements: alone Occupation/Education: occupation 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 Please see nursing chart for further information. There is no relevant family history pertinent to the presenting complaint Exam Narrative: GENERAL: Well-appearing, well-nourished, and in no acute distress. HEAD: Normocephalic, atraumatic. EYES: EOMI. PERRL. Right eye normal. Left eye: Pt holding it closed. When opened, eye is
== END 2022-07-24 10:08 | disposition home or self-care (01) ==
PROVIDERS: Emergency Provider Nurse Practitioner; PCP Family Medicine
DX: H57.12 Ocular pain, left eye (principal); M19.90 Unspecified osteoarthritis, unspecified site; I25.10 Atherosclerotic heart disease of native coronary artery without angina pectoris; E11.9 Type 2 diabetes mellitus without complications; I10 Essential (primary) hypertension; E78.5 Hyperlipidemia, unspecified; I25.2 Old myocardial infarction; Z95.5 Presence of coronary angioplasty implant and graft; F17.210 Nicotine dependence, cigarettes, uncomplicated
CPT/HCPCS: 99213; G0463

== ENCOUNTER 2023-02-22 15:40 | Emergency (ER) | payer OTHER, SELFPAY ==
--- NOTE | 2023-02-22 15:43 | ED.MALEGU ---
HPI - Male Genitourinary General Chief complaint: Urogenital-Male Stated complaint: poss std exposure Time Seen by Provider: 02/22/23 15:58 Source: patient and RN notes reviewed Mode of arrival: ambulatory Limitations: no limitations History of Present Illness HPI Narrative: 52-year-old male presents with concern for exposure to trichomoniasis. He reports he found a document with positive test results his girlfriend had done earlier this week. He denies symptoms. MD Complaint: possible STD exposure Related Data Allergies Allergy/AdvReac Type Severity Reaction Status Date / Time amoxicillin Allergy Severe Unresponsiv Verified 02/22/23 15:56 e Penicillins Allergy Severe bradycardia Verified 02/22/23 15:56 Review of Systems Review of Systems: CONSTITUTIONAL: Denies malaise, chills, sweats, or fever. CARDIOVASCULAR: Denies chest pain, palpitations, or edema. RESPIRATORY: Denies cough or dyspnea. GASTROINTESTINAL: Denies abdominal pain, nausea, vomiting, diarrhea GENITOURINARY: Denies dysuria, frequency, urgency, suprapubic pressure. Denies flank pain or hematuria. SKIN: Denies rash or itching. MUSCULOSKELETAL: Denies back pain or myalgia. All systems reviewed & are unremarkable except as noted in HPI and below PMFSH Past Medical History Medical History Arthritis CAD (coronary artery disease) Diabetes mellitus HTN (hypertension) Hyperlipidemia NSTEMI (non-ST elevated myocardial infarction) Left anterior descending stent in August 2017 First OM stent in July 2019 Tobacco use Surgical History Surgical History History of cardiac catheterization History of coronary angioplasty with insertion of stent History of orthopedic surgery Left knee arthroscopy 02/15/20 Family History Family History Father Diabetes mellitus FH: heart attack Hypertension Mother Diabetes mellitus FH: heart attack Hypertension Other Heart disease Malignant neoplasm Social History Social History Social History: Patient is . He nominates his father to be the individual to make medical decisions for him if he is not able ([phone]). Smoking packs per day: 2 Smoking cigarettes per day: 40.0 Years smoked: 41 Smoking pack-years: 82.00 Smoking status: Current every day smoker Tobacco type: cigarettes Second hand tobacco smoke exposure: Yes Alcohol intake: never Substance use: never Lack of Transportation: No Lack of Food: Never True Current Housing: I Have Housing Concerned About Future Housing: No Difficulty Paying Gas/Electric Bills: No Difficulty Paying for Meds: No Currently Unemployed: YES Education: High School Diploma/GED Difficulty w/ Childcare or Family Care: No Living arrangements: alone Occupation/Education: occupation 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 There is no relevant family history pertinent to the presenting complaint Exam Narrative: GENERAL: Well-appearing, well-nourished, and in no acute distress. HEAD: Normocephalic. EYES: PERRLA, conjunctivae clear. NECK: Supple. No lymphadenopathy CHEST: Clear to auscultation. No respiratory distress. HEART: Regular rate and rhythm. SKIN: Warm, dry, no rash. NEURO: Alert and oriented x3. PSYCH: Normal mood and affect Course Course Emergency Course: Patient is aware of diagnosis, understands and agrees to treatment plan. Anticipatory guidance given. Patient agrees to follow-up as directed and is aware of reasons to seek care at the emergency department. Portions of this record may have been creat
[2023-02-22 15:54] VITALS: BP 151/90; PULSE 79; RESP 16; TEMP 36.2; O2SAT 100
[2023-02-22 21:04] LABS: Trichomonas Vag PCR NOT DETECTED (NOT DETECTE)
[2023-02-22 21:27] LABS: Chlamydia trachomatis NOT DETECTED (NOT DETECTE); Neisseria gonorrhoeae PCR NOT DETECTED (NOT DETECTE)
== END 2023-02-22 16:08 | disposition home or self-care (01) ==
PROVIDERS: Emergency Provider Nurse Practitioner
DX: Z20.2 Contact with and (suspected) exposure to infections with a predominantly sexual mode of transmission (principal); I25.10 Atherosclerotic heart disease of native coronary artery without angina pectoris; E11.9 Type 2 diabetes mellitus without complications; I10 Essential (primary) hypertension; E78.5 Hyperlipidemia, unspecified; I25.2 Old myocardial infarction; F17.210 Nicotine dependence, cigarettes, uncomplicated
CPT/HCPCS: 87491; 87591; 87661; 99213; G0463

== ENCOUNTER 2023-09-27 08:20 | Inpatient (IN) | payer OTHER, SELFPAY ==
[2023-09-27] VITALS (34 sets, daily range): BP systolic 118–159; BP diastolic 71–107; PULSE 73–103; RESP 14–24; TEMP 36.2–36.8; O2SAT 93–100
--- NOTE | ~2023-09-27 | XR_ITS ---
EXAMINATION: XR chest 2V 09/27/2023 08:53 INDICATION: Chest pain and shortness of breath PROCEDURE: 2 view chest COMPARISON: Comparison to multiple prior studies sequentially, with oldest reviewed study dated 05/2019. FINDINGS: The lungs are clear. The cardiomediastinal silhouette is within normal limits. There are no pleural effusions. There is no pneumothorax suspected. No acute osseous abnormality. IMPRESSION: 1: NO ACUTE CARDIOPULMONARY DISEASE. Reviewed, dictated and finalized at location B.
--- NOTE | 2023-09-27 08:23 | ECG_ITS ---
Test Date: 2023-09-27 08:27:27 Measurements Intervals [place] Rate: 102 P: 60 MN: 128 QRS: 42 QRSD: 101 T: 61 QT: 336 QTc: 440 Interpretive Statements SINUS TACHYCARDIA INCOMPLETE RIGHT BUNDLE BRANCH BLOCK LOW QRS VOLTAGE IN PRECORDIAL LEADS BORDERLINE ST-T WAVE ABNORMALITY- HIGH LATERAL LEADS BASELINE ARTIFACT- I, II, III, AVL, AVF, V3-V6 BORDERLINE ECG No previous ECG available for comparison Electronically Signed On 09-27-2023 08:35:15 CDT by Main Rosa D.O.
[2023-09-27] MEDS: ASPIRIN 81 MG CHEWABLE TABLET 324 MG PO (08:27)
--- NOTE | 2023-09-27 08:32 | ECG_ITS ---
Test Date: 2023-09-27 08:34:40 Measurements Intervals [place] Rate: 95 P: 60 DC: 137 QRS: 33 QRSD: 100 T: 67 QT: 346 QTc: 435 Interpretive Statements SINUS RHYTHM INCOMPLETE RIGHT BUNDLE BRANCH BLOCK LOW QRS VOLTAGE IN PRECORDIAL LEADS BASELINE WANDER- V3-V6 BORDERLINE ECG Compared to ECG 09/27/2023 08:27:27 Sinus tachycardia no longer present Electronically Signed On 09-27-2023 08:52:34 CDT by Main Rosa D.O.
--- NOTE | 2023-09-27 08:40 | ED.CHESTPAIN ---
HPI - Chest Pain General Chief Complaint: Chest Pain Stated Complaint: cp Time Seen by Provider: 09/27/23 08:37 Source: patient and family Mode of arrival: ambulatory Limitations: no limitations History of Present Illness HPI narrative: Patient presents with intermittent chest pain occurring for the past 2 days. He had chest pain again this morning it radiated into his left arm. He has a history of myocardial infarction status post 2 stents (he states in 2019). He denies any pain right now. His symptoms are associated shortness of breath. He last saw Cardiology CAREER SPECIALIST Faye Ansari a little over year ago. He endorses taking his medications though he does not know exactly which ones he is on other than 81 mg aspirin. Patient was having vomiting and diarrhea 2 days ago. 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 No lower extremity edema. Reportedly diaphoretic by nursing Related Data Allergies Allergy/AdvReac Type Severity Reaction Status Date / Time amoxicillin Allergy Severe Unresponsiv Verified 09/27/23 08:26 e Penicillins Allergy Severe bradycardia Verified 09/27/23 08:26 [facility] Past Medical History Medical History Arthritis CAD (coronary artery disease) Diabetes mellitus HTN (hypertension) Hyperlipidemia NSTEMI (non-ST elevated myocardial infarction) Left anterior descending stent in August 2017 First OM stent in July 2019 Tobacco use Surgical History Surgical History History of cardiac catheterization History of coronary angioplasty with insertion of stent History of orthopedic surgery Left knee arthroscopy 02/15/20 Family History Family History Father Diabetes mellitus FH: heart attack Hypertension Mother Diabetes mellitus FH: heart attack Hypertension Other Heart disease Malignant neoplasm Social History Social History Social History: Patient is . He nominates his father to be the individual to make medical decisions for him if he is not able ([phone]). Smoking packs per day: 2 Smoking cigarettes per day: 40.0 Years smoked: 41 Smoking pack-years: 82.00 Smoking status: Current every day smoker Tobacco type: cigarettes Second hand tobacco smoke exposure: Yes Alcohol intake: never Substance use: never Lack of Transportation: No Lack of Food: Never True Current Housing: I Have Housing Concerned About Future Housing: No Difficulty Paying Gas/Electric Bills: No Difficulty Paying for Meds: No Currently Unemployed: YES Education: High School Diploma/GED Difficulty w/ Childcare or Family Care: No Living arrangements: alone Occupation/Education: occupation 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 HEAD: Normocephalic, atraumatic. EYES: Non injected, non icteric ENT: Nares clear, no rhinorrhea or epistaxis. NECK: Supple. CHEST: Speaking in full sentences. No respiratory distress. Patient does have inspiratory wheeze more appreciable on the right and left. HEART: Regular rate and rhythm. ABDOMEN: Soft, nondistended. EXTREMITIES: Normal range of motion. No lower extremity edema. SKIN: Warm, dry, no rash. Notably not diaphoretic at the time of exam. NEURO: No focal deficits. Alert and oriented x3. PSYCH: Normal mood and affect. Course Vital Signs Vital signs: Vital Signs Temperature 98.3 F 09/27/23 08:22 Pulse Rate 103 H 09/27/23 08:22 Respiratory Rate 18 09/27/23 08:22 Blood Pressure 158/107 H 09/27/23 08:22 Pulse Oximetry 97 09/27/23 08:22 Oxygen Delivery Ro
[2023-09-27 08:44] LABS: Alanine Aminotransferase 29 U/L (6-50); Albumin Level 4.3 g/dL (3.5-5.1); Alkaline Phosphatase 82 U/L (38-126); Anion Gap 12 mmol/L (4-12); Aspartate Amino Transferase 66 U/L (17-59); Bilirubin,Total 0.4 mg/dL (0.2-1.3); Blood Urea Nitrogen 18 mg/dL (9-20); Calcium 9.3 mg/dL (8.4-10.2); Carbon Dioxide 22 mmol/L (22-30); Chloride 101 mmol/L (98-107); Estimated CRCL calculation 84 ml/min; Estimated Glomerular Filt Rate > 60; Glucose 415 mg/dL (65-110); Lipase 70 U/L (23-300); Potassium 4.2 mmol/L (3.4-5.0); Sodium 135 mmol/L (137-145)
[2023-09-27 08:51] LABS: Basophils Percent Auto 0.3 % (0.2-1.2); Eosinophils Absolute Auto 0.1 K/mm3 (0-0.3); Eosinophils Percent Auto 0.8 % (0-4.4); Hematocrit 46.4 % (42.0-52.0); INR 0.9; Immature Granulocyte Absolute 0.03 K/mm3 (0.00-0.031); Immature Granulocyte Percent A 0.3 % (0-0.5); Lymphocytes Absolute Auto 1.92 K/mm3 (0.9-3.2); Lymphocytes Percent Auto 20.3 % (18.3-44.2); Mean Corpuscular HGB Conc 34.5 g/dl (32-36); Mean Corpuscular Hemoglobin 30.9 pg (26-34); Mean Corpuscular Volume 89.6 fl (80-100); Monocytes Absolute Auto 0.9 K/mm3 (0.1-0.6); Monocytes Percent Auto 9.7 % (2.6-8.5); Neutrophils Absolute Auto 6.5 K/mm3 (1.3-6.7); Neutrophils Percent Auto 68.6 % (45.5-73.1); Platelet Count Result 193 k/mm3 (150-375); Prothrombin Time 12.8 Seconds (11.1-14.7); Red Blood Count 5.18 M/mm3 (4.6-6.20); Red Cell Distribution Width 13.1 % (11.5-14.5); White Blood Count 9.5 K/mm3 (4.5-10.0)
[2023-09-27 09:21] LABS: Magnesium 1.5 mg/dL (1.6-2.3)
[2023-09-27 09:51] LABS: Influenza A QL RT-PCR Negative (Negative); Influenza B QL RT-PCR Negative (Negative); RSV RNA, RT-PCR Negative (Negative); SARS-CoV-2 RNA PCR Negative (Negative)
[2023-09-27] MEDS: MAGNESIUM SULF 1 GM/D5W 100 ML 1 GM/100 ML BAG IVPB (10:16)
[2023-09-27] MEDS: HEPARIN SODIUM 5,000 UNITS/ML VIAL 4000 UNITS IV PUSH ×2 (10:23→23:21)
[2023-09-27] MEDS: HEPARIN SOD/D5W 100 UNITS/ML 25,000 UNITS/250 ML BAG 10 UNITS IV CONT ×2 (10:24→23:16)
[2023-09-27 10:45] LABS: Cholesterol 215 mg/dL (0-200); HDL Direct 35 mg/dL; Triglycerides 367 mg/dL (<150)
[2023-09-27 10:46] LABS: Hemoglobin A1C 9.5 % (<5.7)
[2023-09-27 10:57] LABS: LDL Cholesterol Direct 132 mg/dL
--- NOTE | 2023-09-27 11:13 | PCRCNOTE ---
Pt refused respiratory treatment at this time.
--- NOTE | 2023-09-27 11:23 | ADMGEN ---
This patient, Alberto Crenshaw, was admitted to IMU Room 212-01 at 1114. Patient/family oriented to hospital policies and general routines including ID bracelet, bed and alarms, visiting hours, pain management, procedures, bathroom and other care routines, personal items, smoking policy, room service/diet, and visiting hours. Information on how to activate the Rapid Response Team has been discussed. Patient/Family are encouraged to report perceived risks to care and to ask questions if they do not understand what they are told or what they should do.
[2023-09-27 11:49] LABS: Basophils Absolute Auto 0.1 K/mm3 (0.0-0.1); Basophils Percent Auto 0.5 % (0.2-1.2); Eosinophils Absolute Auto 0.2 K/mm3 (0-0.3); Eosinophils Percent Auto 2.1 % (0-4.4); Hematocrit 46.5 % (42.0-52.0); Hemoglobin 15.5 g/dL (14.0-18.0); Immature Granulocyte Absolute 0.04 K/mm3 (0.00-0.031); Immature Granulocyte Percent A 0.4 % (0-0.5); Lymphocytes Absolute Auto 2.75 K/mm3 (0.9-3.2); Lymphocytes Percent Auto 26.4 % (18.3-44.2); Mean Corpuscular HGB Conc 33.3 g/dl (32-36); Mean Corpuscular Hemoglobin 30.3 pg (26-34); Mean Corpuscular Volume 90.8 fl (80-100); Mean Platelet Volume 11.9 fl (7.4-10.4); Monocytes Percent Auto 9.3 % (2.6-8.5); Neutrophils Absolute Auto 6.4 K/mm3 (1.3-6.7); Neutrophils Percent Auto 61.3 % (45.5-73.1); Platelet Count Result 201 k/mm3 (150-375); Red Blood Count 5.12 M/mm3 (4.6-6.20); Red Cell Distribution Width 13.1 % (11.5-14.5); White Blood Count 10.4 K/mm3 (4.5-10.0)
[2023-09-27 12:12] LABS: Prothrombin Time 13.3 Seconds (11.1-14.7)
[2023-09-27 12:14] LABS: Partial Thromboplastin Time 64.4 Seconds (22.3-36.8)
--- NOTE | 2023-09-27 12:50 | PM.IMHP ---
H&P: HPI History of Present Illness Date/Time: 09/27/23 12:50 Chief Complaint: Chest pain. Narrative: This is a 53-year-old male smoker with coronary artery disease status post stents to the LAD and OM circumflex in 2017 and 2019 respectively, normal Lexiscan stress test in March 2022, hypertension, hyperlipidemia, and type 2 diabetes mellitus who presented to the emergency department via private vehicle for evaluation chest pain. The patient provides the following history. On Tuesday mid morning the developed hot sweats, nausea, and reports having several episodes of emesis. He felt somewhat better thereafter. Upon waking Tuesday morning he began to have sharp pain in the mid chest which he attributed to vomiting the day before. The pain intensified and he once again started to feel nauseated and he presumed that he had heartburn. He took Tums which provided him with relief. 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 Given his cardiac history, he decided to come in for evaluation. He denies syncope, near syncope, pleuritic pain, abdominal pain, bloating, belching, lower extremity edema, and calf pain. In the ED: Vital signs were stable on arrival though blood pressure was elevated at 158/107. Labs are significant for WBC count of 9.5, hemoglobin 16.0, platelet 193, sodium 135, BUN 18, creatinine 1.20, glucose 415, AST 66, troponin 3.310. EKG showed sinus tachycardia with incomplete right bundle-branch block without acute ST segment changes. He was given aspirin 324 mg and was started on heparin drip. Cardiology was consulted and plans are to take the patient to the petroleum laboratory technician this afternoon. Review of Systems Review of Systems: 12 systems were reviewed and are negative except for as per HPI. [facility] Past Medical History Medical History Arthritis Coronary artery disease History of stents in 2017 and 2019. Hepatic steatosis Hyperlipidemia Hypertension Tobacco use Type 2 diabetes mellitus Surgical History Surgical History History of arthroscopy of left knee (02/2020) History of cardiac catheterization History of coronary angioplasty with insertion of stent LAD in 2017. OM circumflex in 2019. History of tonsillectomy and adenoidectomy Family History Family History Father Diabetes mellitus FH: heart attack Hypertension Mother Diabetes mellitus FH: heart attack Hypertension Other Heart disease Malignant neoplasm Social History Social History (Updated 09/27/23 @ 13:57 by Sally Monte PA-C) Social History: Surrogate medical decision maker: Renetta Demario, friend. Code status: Do not resuscitate. Smoking packs per day: 1 Smoking cigarettes per day: 20.0 Years smoked: 30 Smoking pack-years: 30.00 Smoking status: Current every day smoker Tobacco type: cigarettes Second hand tobacco smoke exposure: Yes Alcohol intake: never Substance use: never Do You Feel Safe in your Home?: Yes Lack of Transportation: No Lack of Food: Never True Current Housing: I Have Housing Concerned About Future Housing: No Difficulty Paying Gas/Electric Bills: No Difficulty Paying for Meds: No Currently Unemployed: No Education: Trade/Vocational Certificate Difficulty w/ Childcare or Family Care: No Living arrangements: alone Additional living arrangements comments: Lives in [place]. 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 Spiritual care concerns: No Meds Home Medications and Allergies Home Medications Medication Instructions Recorded Confirmed Type No Home Medications 09/27/23 09/27/23 History Allergies Allergy/AdvReac Type Severity [place]
[2023-09-27] MEDS: ATORVASTATIN 40 MG TABLET 80 MG PO (13:20)
--- NOTE | 2023-09-27 13:25 | PM.CNCAR ---
Assessment and Plan Assessment and plan (1) Non-ST elevated myocardial infarction: Code(s): I21.4 - Non-ST elevation (NSTEMI) myocardial infarction Status: Acute Assessment and Plan: Recommended LHC. Discussed the procedure with the patient, including indication for the procedure, procedure details, risks vs benefits, alternative management options, etc. Patient agreeable to proceed. Will plan for LHC this afternoon. Continue Heparin drip in the meantime. Continue ASA 81mg once daily. Will start high intensity statin. Patient has issues with medication noncompliance. Discussed with patient that if he needed stents, he would need to take ASA 81mg once daily indefinitely along with a P2Y12 inhibitor for at least one year without any interruption, otherwise there is a risk of stent thrombosis with noncompliance with DAPT. Discussed the consequences of stent thrombosis with the patient, including risk of . (2) Coronary artery disease: Code(s): I25.10 - Atherosclerotic heart disease of [place] coronary artery without angina pectoris Status: Acute Assessment and Plan: As above. (3) Type 2 diabetes mellitus with hyperglycemia: Code(s): E11.65 - Type 2 diabetes mellitus with hyperglycemia Status: Acute Assessment and Plan: Uncontrolled. Has not been taking any of his medications. Hgb A1c is 9.5. Management as per primary team. (4) Hypertension: Code(s): I10 - Essential (primary) hypertension Status: Acute Assessment and Plan: [place] (5) Hyperlipidemia: Qualifiers: Hyperlipidemia type: unspecified Qualified Code(s): E78.5 - Hyperlipidemia, unspecified Code(s): E78.5 - Hyperlipidemia, unspecified Status: Chronic Assessment and Plan: LDL uncontrolled at 132. Will start high intensity statin. (6) Medical non-compliance: Code(s): Z91.199 - Patient's noncompliance with other medical treatment and regimen due to unspecified reason Status: Acute Assessment and Plan: As above (7) Tobacco use: Code(s): Z72.0 - Tobacco use Status: Chronic Assessment and Plan: Recommend smoking cessation. Plan Recommendations and plan discussed with the Hospitalist. History of Present Illness History of Present Illness Consult date/time: 09/27/23 13:25 Requesting physician: Sanna Saenz MD Consult reason: chest pain Reason For Visit: nstemi Narrative: We are consulted for chest pain. This is a 53 year old male with known coronary artery disease s/p stents to the LAD and OM1, uncontrolled diabetes mellitus, hypertension, hyperlipidemia, tobacco abuse, medication non-compliance who presented with substernal chest pain with radiation to the left arm that occurred this morning. Has been having vomiting for the past two days. Currently chest pain free. Workup in the ER showed initial troponin of 3.310, with repeat at 4.830. CXR without acute findings. EKG with sinus rhythm, incomplete right bundle branch block. Patient started on a Heparin drip and admitted for further management. Of note, patient stopped taking all of his medications at home for quite some time now. Has not followed up with a primary care provider or with cardiology -- last time we saw him in the office was in March 2022. Smokes a pack of cigarettes a day. Review of Systems Review of Systems: All systems reviewed & are unremarkable except as noted in HPI and below (HPI) PMFSH Past Medical History Medical History Arthritis Coronary artery disease History of stents in 2017 and 2019. Hepatic steatosis Hyperlipidemia Hypertension Tobacco use Type 2 diabetes mellitus Surgical History Surgical History History of arthroscopy of left knee (02/2020) History of cardiac catheterization History of coronary angioplasty with insertion of
--- NOTE | 2023-09-27 13:37 | WPDMODSED ---
Moderate Sedation Note-Pt Data Patient Data Diagnosis: NSTEMI Present Complaint: NSTEMI Procedure to be performed/Plan: Coronary angiography, left heart cath, +/- PCI Allergies Allergy/AdvReac Type Severity Reaction Status Date / Time amoxicillin Allergy Severe Unresponsiv Verified 09/27/23 08:26 e Penicillins Allergy Severe bradycardia Verified 09/27/23 08:26 Home Medications Medication Instructions Recorded Confirmed Type No Home Medications 09/27/23 09/27/23 History Current Medications: Active Medications Acetaminophen (Acetaminophen 325 Mg Tablet) 650 mg PO Q4H PRN PRN Reason: Mild Pain (1-3) or Fever Aspirin (Aspirin 81 Mg Enteric Tablet) 81 mg PO QAM [facility] Atorvastatin Calcium (Atorvastatin 40 Mg Tablet) 80 mg PO DAILY [facility] Last Admin: 09/27/23 13:20 Dose: 80 mg Dextrose (Dextrose 50% 25 Gm/50 Ml Syringe) 12.5 gm IV PUSH PRN PRN; Protocol PRN Reason: Hypoglycemia Glucagon (Glucagon For Inj 1 Mg Vial) 1 mg IM PRN PRN; Protocol PRN Reason: Hypoglycemia Glucose (Glucose Oral Gel 15 Gm Of Glucse In 37.5 Gm Tube) 15 gm PO PRN PRN; Protocol PRN Reason: Hypoglycemia Heparin Sodium (Porcine) (Heparin Sodium 5,000 Units/Ml Vial) 4,000 units IV PUSH PRN PRN PRN Reason: aPTT less than 55 seconds Heparin Sodium (Porcine) (Heparin Sodium 5,000 Units/Ml Vial) 4,000 units IV PUSH PRN PRN PRN Reason: aPTT 55 - 70 seconds Heparin Sodium/Dextrose (Heparin Sodium/D5w 100 Units/Ml) 25,000 units in 250 mls @ 10 mls/hr IV CONT .Q24H [facility]; Protocol Last Admin: 09/27/23 10:24 Dose: 1,000 units/hr, 10 mls/hr Dextrose (Dextrose 5% 1,000 Ml) 1,000 mls @ 100 mls/hr IVPB PRN PRN; Protocol PRN Reason: Hypoglycemia Morphine Sulfate (Morphine Sulfate (*Crx) 4 Mg/Ml Inj) 4 mg IV PUSH Q2H PRN PRN Reason: Pain Rated 7-10 Ondansetron HCl (Ondansetron Inj 4 Mg/2 Ml Vial) 4 mg IV PUSH Q4H PRN PRN Reason: Nausea Sedation/Anesthesia: No previous sedation/anesthesia problems (including family history). PMFSH Past Medical History Medical History Arthritis Coronary artery disease History of stents in 2017 and 2019. Hepatic steatosis Hyperlipidemia Hypertension Tobacco use Type 2 diabetes mellitus Surgical History Surgical History History of arthroscopy of left knee (02/2020) History of cardiac catheterization History of coronary angioplasty with insertion of stent LAD in 2017. OM circumflex in 2019. History of tonsillectomy and adenoidectomy Family History Family History Father Diabetes mellitus FH: heart attack Hypertension Mother Diabetes mellitus FH: heart attack Hypertension Other Heart disease Malignant neoplasm Social History Social History Social History: Surrogate medical decision maker: Renetta Hanks, friend. Code status: Full code. Smoking packs per day: 1 Smoking cigarettes per day: 20.0 Years smoked: 30 Smoking pack-years: 30.00 Smoking status: Current every day smoker Tobacco type: cigarettes Second hand tobacco smoke exposure: Yes Alcohol intake: never Substance use: never Do You Feel Safe in your Home?: Yes Lack of Transportation: No Lack of Food: Never True Current Housing: I Have Housing Concerned About Future Housing: No Difficulty Paying Gas/Electric Bills: No Difficulty Paying for Meds: No Currently Unemployed: No Education: Trade/Vocational Certificate Difficulty w/ Childcare or Family Care: No Living arrangements: alone Additional living arrangements comments: Lives in [place]. 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 Spiritual care concerns: No Mod Sed Physical Exam Physical Exam Pre Procedural Exam: Normal: Appearance, Lungs, Heart Rat
--- NOTE | 2023-09-27 14:50 | WPDCARDPROC ---
Cardiac Cath Procedure Note Date of procedure:: 09/27/23 Performing physician:: CATHETERIZATION LABORATORY REPORT Procedure Date: 09/27/2023 Education Analyst: Michel Whitten M.D., [facility]? Referring Physician: Michel Whitten M.D. ? Anesthesia: Versed and Fentanyl were ordered and given in my presence at 14:15, procedure ended at 14:40. Supervision of nurse monitored moderate sedation with Versed and Fentanyl was provided for 25 minutes. Total of Versed 1mg and Fentanyl 50mcg were administered by the Dietary Tech RN Nusrat Conde. Pre-op Diagnosis: NSTEMI, Coronary artery disease Post-op Diagnosis: 1. Complete occlusion of the proximal RCA, which is a small caliber, non-dominant vessel. Given it's a small caliber non-dominant vessel, intervention not pursued. Will treat with medical management. 2. Non-obstructive coronary artery disease of the left coronary system. Patent stents in the LAD and OM. 3. Left-dominant coronary artery system. 4. Elevated left ventricular end-diastolic pressure of 24mmHg Procedure(s): 1. Moderate sedation 2. Ultrasound-guided access of the right radial artery. 3. Coronary angiography 4. Left heart catheterization Access Site: Right radial artery Brief History and Clinical Indications: Patient is a 53 year old male with known coronary artery disease s/p stents to the LAD and OM1, uncontrolled diabetes mellitus, hypertension, hyperlipidemia, tobacco abuse, medication non-compliance who is referred for [facility] for NSTEMI. All risks, benefits and alternatives to left heart catheterization with or without percutaneous coronary intervention was discussed at length with the patient. Risk of complications including but not limited to bleeding, infection, arrhythmia, stroke, worsening kidney function, blood loss, groin hematoma, limb loss, emergency coronary artery bypass grafting, and even were discussed with the patient and all questions were answered. The patient understood and wished to proceed. Time out called, patient name, date of , medical record number, allergies, procedure performed, identify Education Analyst, patient and staff member concurred with accurate data, procedure carried on. Findings: LEFT HEART CATHETERIZATION FINDINGS: 1. Left main: The left main coronary artery is widely patent without any significant obstructive disease. The left main is short. 2. Left anterior descending: The proximal LAD has an eccentric moderate 50% stenosis. Patent stent seen in the mid LAD. Remainder of the LAD has diffuse mild disease. No significant obstructive angiographic disease 3. Left circumflex: The left circumflex artery is the dominant vessel. The left circumflex has diffuse mild disease. Patent stent visualized in the proximal portion of OM-1; remainder of the vessel has mild diffuse disease. OM-2 and OM-3 have diffuse mild disease. No significant obstructive angiographic disease 4. Right coronary artery: The RCA is known to be a small caliber, non-dominant vessel on previous coronary angiograms. The RCA is 100% occluded in the proximal portion. 5. Left ventricle: A. End-diastolic pressure 24 mmHg. B. LV gram deferred. C. No significant gradient across aortic valve on catheter pullback. Description of Procedure: Informed consent signed and placed in the chart. Patient transferred to home performance laborer room. Prepped and draped in usual sterile fashion. 2% lidocaine injected subcutaneously in right wrist area. 22-gauge venipuncture catheter used to access the right radial artery under ultrasound guidance. 6-FR slender sheath placed in right radial artery. Nitroglycerine and Verapamil were given intraarterial through the sheath. Versacore wire advanced under fluoroscopy 5F Tig 4 diagnostic catheter engaged Left Main Coronary Artery. 5F Tig 4 diagnostic catheter engaged Right Coronary Artery Multiple orthogonal angiogram obtained and reviewed 5F Pigtail diagnostic catheter crossed aortic valve to obta
[2023-09-27] MEDS: SODIUM CHLORIDE 0.9% IV 1,000 ML 125 ML IV CONT (17:29)
[2023-09-27 17:40] LABS: Glucose Point of Care 171 mg/dl (65-105)
[2023-09-27] MEDS: metFORMIN HCL 500 MG TABLET PO (18:38)
[2023-09-27 19:52] LABS: Glucose Point of Care 205 mg/dl (65-105)
[2023-09-27] MEDS: TICAGRELOR 90 MG TABLET PO (20:12)
--- NOTE | 2023-09-27 22:25 | PC.NURSE ---
During routine chart review it was discovered that the patient's heparin GTT from before the cath was still showing as being delivered. Per report and discussion with the provider the GTT was stopped before the cath was performed. Additionally, on assessment the patient was noted to be receiving post cath fluids and no other GTTs. This RN contacted the provider to clarify the heparin orders for resuming the GTT. Dr. Whitten verbalized to check the patient's PTT and resume per protocol @ 6 hours post TR band removal, which was reported as being 1714. Will resume after ptt is drawn and as close to 2314 as possible.
[2023-09-27 22:46] LABS: Partial Thromboplastin Time 25.4 Seconds (22.3-36.8)
[2023-09-28] VITALS (11 sets, daily range): BP systolic 142–154; BP diastolic 87–95; PULSE 86–110; RESP 20–24; TEMP 36.7–37.1; O2SAT 95–98
--- NOTE | 2023-09-28 | ECHO_ITS ---
Patient Info Name: Alberto Crenshaw Age: 53 years : 1970 Gender: Male Ht: 75 in Wt: 241 lbs BSA: 2.43 m2 HR: 86 bpm BP: 142 / 91 mmHg Heart Rhythm: Sinus Rhythm Technical Quality: Fair Exam Date: 09/28/2023 8:10 AM Exam Location: Echo Lab Patient Status: Inpatient Admit Date: 09/27/2023 Staff Ordering Physician: Michel Whitten MD ([email or web address]/braxton) Academic Affairs Specialist: Anuj Guillaume RDCS Attending Provider: Lino Goncalves MD Referring Physician: Fish ROJAS; Exam Type: CA echo dop color flow w con Study Info Indications - NSTEMI Complete two-dimensional, color flow and Doppler transthoracic echocardiogram is performed with contrast to opacify the left ventricle and to improve the deliniation of the left ventricle endocardial borders. Contrast/Agitated Saline Contrast/Ag. Saline: Definity Amount: 4.00 ml Existing IV Access: Yes Summary 1. Left ventricular chamber dimension is normal. 2. Left ventricular systolic function is normal, estimated at 50-55%. 3. There is mildly increased left ventricular wall thickness. 4. The left ventricular diastolic function is grade I diastolic dysfunction. 5. Right ventricular chamber dimension is mildly enlarged. 6. Right ventricular systolic function is normal. 7. No significant valvular disease. Left Ventricle Left ventricular chamber dimension is normal. Left ventricular systolic function is normal, estimated at 50-55%. There is mildly increased left ventricular wall thickness. The left ventricular diastolic function is grade I diastolic dysfunction. Right Ventricle Right ventricular chamber dimension is mildly enlarged. Right ventricular systolic function is normal. Left Atria Left atrial chamber dimension is normal. Right Atria Right atrial chamber dimension is normal. Atrial Septum Intact interatrial septum visualized by color flow imaging. Aortic Valve The aortic valve is trileaflet. There is no aortic valve stenosis. There is no aortic valve regurgitation. There is mild aortic valve calcification. Pulmonic Valve The pulmonic valve is not well visualized. There is no pulmonic regurgitation. Mitral Valve There is trace mitral valve regurgitation. The mitral valve annulus is mildly calcified. Tricuspid Valve There is trace tricuspid valve regurgitation. Pericardium/Pleural The pericardium appears epicardial fat pad. There is no pericardial effusion. Inferior Vena Cava Normal inferior vena cava with <50% collapse upon inspiration consistent with elevated right atrial pressure, 8 mmHg. Aorta The aortic root size at the sinus of Valsalva is normal. Left Ventricular Outflow Tract Name Value Normal LVOT 2D LVOT Diameter 2.35 cm LVOT Doppler LVOT Peak Gradient 5 mmHg LVOT Mean Gradient 3 mmHg LVOT VTI 17.98 cm LVOT VTI/AV VTI Ratio 0.82 LVOT Stroke Volume 77.74 ml LVOT CO 7.91 l/min LVOT CI 3.26 L/min/m2 Pulmonic Valve
[2023-09-28 04:59] LABS: Basophils Percent Auto 0.3 % (0.2-1.2); Eosinophils Absolute Auto 0.1 K/mm3 (0-0.3); Eosinophils Percent Auto 0.7 % (0-4.4); Hematocrit 43.9 % (42.0-52.0); Hemoglobin 14.9 g/dL (14.0-18.0); Immature Granulocyte Absolute 0.06 K/mm3 (0.00-0.031); Immature Granulocyte Percent A 0.5 % (0-0.5); Lymphocytes Absolute Auto 2.23 K/mm3 (0.9-3.2); Lymphocytes Percent Auto 18.6 % (18.3-44.2); Mean Corpuscular HGB Conc 33.9 g/dl (32-36); Mean Corpuscular Hemoglobin 30.6 pg (26-34); Mean Corpuscular Volume 90.1 fl (80-100); Mean Platelet Volume 11.2 fl (7.4-10.4); Monocytes Absolute Auto 1.3 K/mm3 (0.1-0.6); Monocytes Percent Auto 10.5 % (2.6-8.5); Neutrophils Absolute Auto 8.3 K/mm3 (1.3-6.7); Neutrophils Percent Auto 69.4 % (45.5-73.1); Platelet Count Result 171 k/mm3 (150-375); Red Blood Count 4.87 M/mm3 (4.6-6.20)
[2023-09-28 05:09] LABS: Partial Thromboplastin Time 37.1 Seconds (22.3-36.8)
[2023-09-28 05:18] LABS: Alanine Aminotransferase 33 U/L (6-50); Albumin Level 4.1 g/dL (3.5-5.1); Alkaline Phosphatase 81 U/L (38-126); Anion Gap 9 mmol/L (4-12); Aspartate Amino Transferase 93 U/L (17-59); Bilirubin,Total 0.6 mg/dL (0.2-1.3); Blood Urea Nitrogen 11 mg/dL (9-20); Carbon Dioxide 24 mmol/L (22-30); Chloride 101 mmol/L (98-107); Estimated CRCL calculation 90 ml/min; Estimated Glomerular Filt Rate > 60; Glucose 186 mg/dL (65-110); Magnesium 1.5 mg/dL (1.6-2.3); Potassium 4.3 mmol/L (3.4-5.0); Sodium 134 mmol/L (137-145)
[2023-09-28] MEDS: HEPARIN SODIUM 5,000 UNITS/ML VIAL 4000 UNITS IV PUSH (05:34)
[2023-09-28 07:11] LABS: Glucose Point of Care 220 mg/dl (65-105)
[2023-09-28] MEDS: EMPAGLIFLOZIN 10 MG TABLET PO (08:21)
[2023-09-28] MEDS: ATORVASTATIN 40 MG TABLET 80 MG PO (08:21)
[2023-09-28] MEDS: metFORMIN HCL 500 MG TABLET PO (08:21)
[2023-09-28] MEDS: TICAGRELOR 90 MG TABLET PO (08:21)
[2023-09-28] MEDS: ASPIRIN 81 MG ENTERIC TABLET PO (08:21)
[2023-09-28] MEDS: HYDROcodone/acetaminophen (*CRX) 5-325 MG TABLET 1 TAB PO (08:21)
[2023-09-28] MEDS: PERFLUTREN LIPID MICROSPHERES 1.5 ML VIAL DILUTED TO 10 ML TOTAL VOLUME IV PUSH (09:18)
--- NOTE | 2023-09-28 09:18 | IVDEFINITY ---
Prior to administration of IV Definity the patient was educated on the risks and benefits of the imaging enhancing agent including potential adverse side effects. The patient verbalized understanding. Allergies were verified. No exclusion criteria were identified and at least one of the following inclusion criteria were met: 1) physician request, 2) patient technically difficult to image (per the [place] [employer] Echocardi[employer] guidelines of two or more segments not discernable within the apical view), or 3) questionable left ventricular function. ?
--- NOTE | 2023-09-28 09:48 | PM.PNCARD ---
Progress Note: A&P Assessment and Plan (1) Non-ST elevated myocardial infarction: Code(s): I21.4 - Non-ST elevation (NSTEMI) myocardial infarction Status: Acute Assessment and Plan: Cardiac catheterization showed: 1. Complete occlusion of the proximal RCA, which is a small caliber, non-dominant vessel. Given it's a small caliber non-dominant vessel, intervention not pursued. Will treat with medical management. 2. Non-obstructive coronary artery disease of the left coronary system. Patent stents in the LAD and OM. 3. Left-dominant coronary artery system. 4. Elevated left ventricular end-diastolic pressure of 24mmHg Echocardiogram shows LVEF 50-55%, grade 1 diastolic dysfunction, no significant valvular disease. Continue ASA 81mg once daily indefinitely. Continue Brilinta 90mg BID for at least 1 year. Continue high intensity statin. (2) Coronary artery disease: Code(s): I25.10 - Atherosclerotic heart disease of [place] coronary artery without angina pectoris Status: Acute Assessment and Plan: As above. (3) Type 2 diabetes mellitus with hyperglycemia: Code(s): E11.65 - Type 2 diabetes mellitus with hyperglycemia Status: Acute Assessment and Plan: Uncontrolled. Has not been taking any of his medications. Hgb A1c is 9.5. Management as per primary team. I have placed a referral for outpatient Endocrinology. (4) Hypertension: Code(s): I10 - Essential (primary) hypertension Status: Acute Assessment and Plan: Stable (5) Hyperlipidemia: Qualifiers: Hyperlipidemia type: unspecified Qualified Code(s): E78.5 - Hyperlipidemia, unspecified Code(s): E78.5 - Hyperlipidemia, unspecified Status: Chronic Assessment and Plan: LDL uncontrolled at 132. Started high intensity statin (6) Medical non-compliance: Code(s): Z91.199 - Patient's noncompliance with other medical treatment and regimen due to unspecified reason Status: Acute Assessment and Plan: Recommended staying compliant to his medications. (7) Tobacco use: Code(s): Z72.0 - Tobacco use Status: Chronic Assessment and Plan: Recommend smoking cessation. Plan Okay to discharge home from a cardiology standpoint. Will arrange outpatient follow up in our office. Recommendations and plan discussed with the Hospitalist. Subjective Date/time seen: 09/28/23 09:48 Interval history: Reason for visit: NSTEMI HPI: We are consulted for chest pain. This is a 53 year old male with known coronary artery disease s/p stents to the LAD and OM1, uncontrolled diabetes mellitus, hypertension, hyperlipidemia, tobacco abuse, medication non-compliance who presented with substernal chest pain with radiation to the left arm that occurred this morning. Has been having vomiting for the past two days. Currently chest pain free. Workup in the ER showed initial troponin of 3.310, with repeat at 4.830. CXR without acute findings. EKG with sinus rhythm, incomplete right bundle branch block. Patient started on a Heparin drip and admitted for further management. Of note, patient stopped taking all of his medications at home for quite some time now. Has not followed up with a primary care provider or with cardiology -- last time we saw him in the office was in March 2022. Smokes a pack of cigarettes a day. Date of service 09/27: Feeling well today. Review of Systems Review of Systems: All systems reviewed & are unremarkable except as noted in HPI and below (HPI) Exam Const: General: comfortable and no acute distress HENMT: Mouth: Yes moist mucous membranes Eyes: General: appearance normal, both eyes and all related structures Sclera: sclerae normal Cardio: Rate: regular rate Rhythm: regular rhythm Skin: General skin exam: normal color Neuro: Speech: normal speech Psych: Mental Status: mental status grossly normal Affect: normal affect Objective D
[2023-09-28 11:23] LABS: Glucose Point of Care 197 mg/dl (65-105)
--- NOTE | 2023-09-28 11:44 | PM.DS ---
DS: Admitting Diagnosis Discharge Date 09/27 Admitting Diagnosis Chest pain. DS: Discharge Diagnosis Discharge Diagnosis (1) Non-ST elevated myocardial infarction: Code(s): I21.4 - Non-ST elevation (NSTEMI) myocardial infarction Status: Acute Assessment and Plan: SEE BELOW (2) Coronary artery disease: Code(s): I25.10 - Atherosclerotic heart disease of [place] coronary artery without angina pectoris Status: Acute (3) Hypomagnesemia: Code(s): E83.42 - Hypomagnesemia Status: Acute (4) Medical non-compliance: Code(s): Z91.199 - Patient's noncompliance with other medical treatment and regimen due to unspecified reason Status: Acute (5) Type 2 diabetes mellitus with hyperglycemia: Code(s): E11.65 - Type 2 diabetes mellitus with hyperglycemia Status: Acute (6) Hypertension: Code(s): I10 - Essential (primary) hypertension Status: Acute (7) Hyperlipidemia: Qualifiers: Hyperlipidemia type: unspecified Qualified Code(s): E78.5 - Hyperlipidemia, unspecified Code(s): E78.5 - Hyperlipidemia, unspecified Status: Chronic (8) Tobacco use: Code(s): Z72.0 - Tobacco use Status: Chronic Plan The patient presented to the emergency department for evaluation of intermittent chest pain for the last 2 days as detailed in HPI. Labs, imaging, EKG, and all reports were personally reviewed. EKG did not show any acute ST segment changes however initial troponin was elevated and is trending upwards. He received aspirin and was started on a heparin drip. Case discussed with Dr. Whitten and she intends on taking the patient to the labor relations specialist this afternoon. Magnesium will be replaced and monitored. He is not compliant with medications and stopped going to his primary care provider due to differences of opinions. His diabetes is not well controlled with an A1c of 9.5% today. We discussed the importance of establishing care with a new doctor as soon as possible so that he may get back on his medications. Pt seen by cardiology sp heart cath see below - Cardiac catheterization showed: 1. Complete occlusion of the proximal RCA, which is a small caliber, non-dominant vessel. Given it's a small caliber non-dominant vessel, intervention not pursued. Will treat with medical management. 2. Non-obstructive coronary artery disease of the left coronary system. Patent stents in the LAD and OM. 3. Left-dominant coronary artery system. 4. Elevated left ventricular end-diastolic pressure of 24mmHg Echocardiogram shows LVEF 50-55%, grade 1 diastolic dysfunction, no significant valvular disease. Continue ASA 81mg once daily indefinitely. Continue Brilinta 90mg BID for at least 1 year. Continue high intensity statin. smoking cessation advised on DC DS: Summary Hospital Course Hospital Course: pt admitted for CP, in the ED: Vital signs were stable on arrival though blood pressure was elevated at 158/107. Labs are significant for WBC count of 9.5, hemoglobin 16.0, platelet 193, sodium 135, BUN 18, creatinine 1.20, glucose 415, AST 66, troponin 3.310. EKG showed sinus tachycardia with incomplete right bundle-branch block without acute ST segment changes. He was given aspirin 324 mg and was started on heparin drip. Cardiology was consulted and plans are to take the patient to the labor relations specialist this afternoon. Time Spent with Patient Time attestation: Total time spent providing and/or coordinating discharge services:40 minutes on day of dc Exam Narrative: General: Well-developed, nontoxic-appearing male sitting up in bed. Weight: 109.6 kg. BMI: 31.0. HEENT: Normocephalic, atraumatic. PERRL, EOMI. Sclera anicteric. Oral mucosa moist. Oropharynx clear. Neck: Supple. No JVD. Respiratory: Lungs are clear to auscultation bilaterally aside from mild expiratory wheezing. Cardiovascular: Regular rate and rhythm with S1-S2. Gastrointestinal: Abdomen is soft, nontend
--- NOTE | 2023-09-30 15:32 | PCCDE ---
09/30/23 3:30 pm I left a generic voice message in follow up; on his phone including phone number. FJ
== END 2023-09-28 13:06 | disposition home or self-care (01) | DRG 282 ==
LOC: ANHED 10:30 → ANHIMU 13:11
PROVIDERS: Internal Medicine; Physician Assistant; Admitting Provider Internal Medicine; Emergency Provider Student in an Organized Health Care Education/Training Program; Visit Provider Family Medicine
PROC: 4A023N7 Measurement of Cardiac Sampling and Pressure, Left Heart, Percutaneous Approach (ICD-10-PCS; CPT 93452; principal; 2023-09-27 13:30)
DX: I21.4 Non-ST elevation (NSTEMI) myocardial infarction (principal); I25.10 Atherosclerotic heart disease of native coronary artery without angina pectoris; E83.42 Hypomagnesemia; E11.65 Type 2 diabetes mellitus with hyperglycemia; I10 Essential (primary) hypertension; E78.5 Hyperlipidemia, unspecified; K76.0 Fatty (change of) liver, not elsewhere classified; M19.90 Unspecified osteoarthritis, unspecified site; Z66 Do not resuscitate; F17.210 Nicotine dependence, cigarettes, uncomplicated; Z91.148 Patient's other noncompliance with medication regimen for other reason; I25.2 Old myocardial infarction; Z95.5 Presence of coronary angioplasty implant and graft
CPT/HCPCS: 36415; 71046; 80053; 80061; 82948; 83036; 83690; 83735; 84484; 85025; 85610; 85730; 87637; 93005; 93458; 96365; 96368; 99285; A9270; C1769; C1887; C1894; C8929; G0378; J0583; J1644; J2250; J2305; J3010; J3475; J7030; J7040; Q9957

== ENCOUNTER 2023-10-20 14:52 | Outpatient (CLI) | payer OTHER, SELFPAY ==
[2023-10-20 15:37] LABS: Creatinine Urine 150.4 mg/dL
[2023-10-20 15:40] LABS: MALB Creatinine Ratio 13.9 mg/g (0-30); Microalbumin Urine Random 20.9 mg/L (0-16.7)
== END 2023-10-20 14:53 | disposition home or self-care (01) ==
LOC: ANHLAB 14:56
PROVIDERS: Visit Provider Internal Medicine
DX: E11.65 Type 2 diabetes mellitus with hyperglycemia (principal)
CPT/HCPCS: 82043

== ENCOUNTER 2023-11-30 14:08 | Outpatient (RCR) | payer OTHER, SELFPAY | END 2024-02-20 09:32 | disposition home or self-care (01) | LOC: ANHDMC 14:08 | PROVIDERS: Visit Provider Internal Medicine | DX: E11.9 Type 2 diabetes mellitus without complications (principal); Z71.89 Other specified counseling | CPT/HCPCS: G0108 ==

== ENCOUNTER 2024-09-15 08:02 | Emergency (ER) | payer OTHER, SELFPAY ==
--- OUTSIDE RECORDS SUMMARY | 2024-09-15 08:05 | XMS_ITS | Referral Summary ---
Author Organization [facility] [address] Address [address] [place] [address] Care Team Providers Care Glassware Maker Demonstrator Name Role Phone Jovani Jorge MD Primary Care Provide r Allergies Active Allergy Reactions Criticality Noted Date Comments Penicillins Anaphylaxis High 09/29/2017 Medications aspirin 81 mg chewable tablet 8 Active ONETOUCH VERIO strip 8 Active ONETOUCH DELICA LANCETS 30 gauge misc 8 Active metFORMIN (GLUCOPHAGE) 500 mg tablet 8 Active pioglitazone (ACTOS) 30 mg tabletIndication s:type 2 diabetes mellitus 8 Active atorvastatin (LIPITOR) 40 mg tablet Take 1 tablet (40 mg total) by mouth daily 30 tablet 11 1 Active nitroglycerin (NITROSTAT) 0.4 mg SL tablet DISSOLVE 1 TABLET UNDER THE TONGUE EVERY 5 MINUTES NEEDED FOR CHEST PAIN 25 tablet 1 1 Active Additional Information Patient not taking.Reported on 10/20/2023 metoprolol tartrate (LOPRESSOR) 50 mg immediate release tablet TAKE 1 TABLET BY MOUTH EVERY 12 HOURS FOR 30 DAYS 3 Active isosorbide mononitrate ER (IMDUR) 30 mg 24 hr tablet Take 30 mg by mouth daily 3 Active losartan (COZAAR) 25 mg tablet Take 25 mg by mouth every morning 3 Active Jardiance 10 mg tablet Take 1 tablet (10 mg total) by mouth daily 4 Active Brilinta 90 mg tablet TAKE 1 TABLET (90MG) BY MOUTH EVERY 12 HOURS 180 tablet 3 5 Active Active Problems Problem Noted Date Diagnosed Date Coronary artery disease invo lving [place] coronary artery of [place] heart without angina pectoris 12/12/2017 History of non-ST elevation myocardial infarctio n (NSTEMI) 12/12/2017 Presence of stent in coronary artery 12/12/2017 Tobacco dependence 12/12/2017 Social History Tobacco Use Types Packs/Day Years Used Date Smoking Tobacco: Every Day Cigarettes Smokeless Tobacco: Never Tobacco Cessation:Ready to Q uit: Not Asked; Counseling Given: Not Answered Alcohol Use Standard Drinks/Week Comments No 0 (1 standard drink = 0.6 oz pur e alcohol) Personal Safety Answer Date Recorded Getting School Help Needed Not on file 03/09 Sex and Gender Information Value Date Recorded Sex Assigned at Not on file Legal Sex Male 1:19 PM CDT Gender Identity Not on file Sexual Orientation Not on file Last Filed Vital Signs Vital Sign Reading Time Taken Comments Blood Pressure 106/62 10/20/2023 2:27 PM CDT Pulse 89 10/20/2023 2:27 PM CDT Temperature 35.8 C (96.5 F) 11/10/2021 9:45 AM CDT Respiratory Rate 18 11/10/2021 12:3 0 PM CDT Oxygen Saturation 96% 10/20/2023 2:27 PM CDT Inhaled Oxygen Concentration - - Weight 109.5 kg (241 lb 4.8 oz) 10/20/2023 2:27 PM CDT Height 188 cm (6' 2) 10/20/2023 2:27 PM CDT Body Mass Index 30.98 10/20/2023 2:27 PM CDT Plan of Treatment Not on file Procedures Procedure Name Priority Date/Time Associated Diagnosis Comments POCT LIPID PANEL Routine 10/20/2023 2:58 PM CDT Presence of stent in coronary artery History of non-ST elevation myocardial infarction (NSTEMI) EGFR STAT 11/10/2021 9:54 AM CDT from Last 3 Months or Most Recently Relevant to Health Maintenance Results * POCT lipid panel (10/20/2023 2:58 PM CDT) Cholesterol, POC 110 mg/dL Comment:GLU = 120 HDL, POC N/A mg/dL Triglycerides, POC 158 mg/dL LDL Cholesterol POC N/A mg/dL Chol/HDL Ratio, POC N/A Non-HDL Cholesterol, POC N/A mg/dL Cholesterol Total, POC 110 mg/dL Capillary blood 10/20/2023 2 :58 PM CDT us Phil Webb MD POINT OF CARE TEST ORDER [facility] Final Result * eGFR (11/10/2021 9:54 AM CDT) eGFR 67 mL/min/1. 73 m2 [facility]) Comment: Interpretive Data Reference Interval Normal >/= 90 mL/min/1.73m2 Mildly decreased* 60 - 89 mL/min/1.73m2 Mildly to moderately decreased 45 - 59 mL/min/1.73m2 Moderately to severely decreased 30 - 44 mL/min/1.73m2 Severely decreased 15 - 29 mL/min/1.73m2 Kidney Failure < 15 mL/min/1.73m2 *Relative to young adult level Estimated glomerular filtration rate is determined by the 2020 CKD-EPI equation recommended by the National Kidney Foundation (A Unifying Approach to GFR Estimation: Recommendations of the NKF-ASK Task Force on Reassessing the Inclusion of Race in Diagnosing Kidney Disease, JASN 2020). The CKD-EPI equation should not be used for patients with unstable renal function and has not been validated in children and those over 70. Current interpretive data was last reviewed 2021. Blood 11/10/2021 9:54 AM CDT 11/10/2021 9:59 AM CDT us Kaushik Durand MD LAB BLOOD ORDERABLES Fi nal Result [facility] ([place]) 1 [facility] Department [place] [address] from Last 3 Months or Most Recently Relevant to Health Maintenance Insurance [facility] H[facility]/PPO Address: [address] [id number] [facility] [employer]PPO Address: [place] [id number] Care Teams Glassware Maker Demonstrator Relationship Specialty Start Date End Date Jovani Jorge MD [address] [place], [place] [id number] PCP - General Family Medicine 09/29/17
--- OUTSIDE RECORDS SUMMARY | 2024-09-15 08:05 | XMS_ITS | Clinical Summary ---
Author Organization [facility] [address] Address [address] [place] [address] Care Team Providers Care Clinic Administrator Name Role Phone Jovani Jorge MD Primary [...] Diagnosed Date Coronary artery disease invo lving [place] coronary artery of [place] heart without angina pectoris 12/12/2017 History of non-ST elevation myocardial infarctio n (NSTEMI) 12/12/2017 Presence of stent in coronary artery 12/12/2017 Tobacco dependence 12/12/2017 Surgical History Surgery Date Site/Laterality Comments CARDIAC STENT PLACEMENT Medical History Medical History Date Comments Diabetes mellitus (HCC) Family History Relation Name Status Comments Father Alive Mother Alive Social History Tobacco Use Types Packs/Day Years [...] on file Sexual Orientation Not on file Obstetrics History Last Filed Vital Signs Vital Sign Reading [...] 10/20/2023 2:27 PM CDT Plan of Treatment Health Maintenance Due Date Last Done Comments Albumin Creatinine Ratio, Urine 1970 Colon Cancer Screening-Colonoscopy 1970 Depression Screening 1970 Hemoglobin A1C 1970 Hepatitis C Screening 1970 Prostate Cancer Screening-PSA 1970 Dilated Eye Exam 1970 Foot Exam 1970 DTaP/Tdap/Td Vaccine (1 - Tdap) 1980 Hepatitis B Screening 1987 Regular Well Visit/Exam 18-64 1987 Pneumococcal vaccine <65 (2 of 2 - PCV) 09/16/2018 09/16/2017 Zoster Vaccine (1 of 2) 2019 eGFR 11/10/2022 11/10/2021 Lipid Panel 10/19/2024 10/20/2023, 03/08, 08/04/2021, Additional history exists Influenza Vaccine (Season Ended) 2024 Procedures Procedure Name Priority Date/Time Associated Diagnosis [...] Capillary blood 10/20/2023 2 :58 PM CDT Phil Webb MD POINT OF CARE TEST ORDER [facility] Final Result * eGFR (11/10/2021 9:54 AM CDT) eGFR 67 mL/min/1. 73 m2 [facility] ([place]) Comment: Interpretive Data Reference Interval Normal >/= [...] LAB BLOOD ORDERABLES Fi nal Result [facility] [place]) 1 [facility] Department [place] [address] from Last 3 Months or Most Recently Relevant to Health Maintenance Insurance [facility] Care Teams Clinic Administrator Relationship Specialty Start Date End Date Jovani Jorge MD [address] [place] [address] PCP - General Family Medicine 09/29/17
--- OUTSIDE RECORDS SUMMARY | 2024-09-15 08:05 | XMS_ITS | Clinical Summary ---
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 ONCOLOGY Gender Identity Not on file Sexual Orientation Not on file Plan of Treatment Health Maintenance Due Date Last Done Comments Colorectal Cancer Screening Colonoscopy (10 Years) 1969 Annual Physical 1972 Hepatitis C 1987 DTaP, Tdap and Td Vaccines ( 1 - Tdap) 1988 Hepatitis B Vaccines (1 of 3 - 19+ 3-dose series) 1988 Pneumococcal Vaccine: 50+ Ye ars (1 of 1 - PCV) 2019 Zoster Vaccines (1 of 2) 2019 COVID-19 Vaccine (2023-2 5 season) 2023 Meningococcal B Vaccine Aged Out No l onger eligible based on patient's age to complete this topic Meningococcal Vaccine Aged Out No chasity bernarda eligible based on patient's age to complete this topic RSV Immunizations Under 20 Months Aged Out No longer eligible based on patient's age to complete this topic
--- NOTE | 2024-09-15 08:07 | ED_ITS ---
HPI - Eye Problem General Chief complaint: Eye Problems Stated complaint: eye pain Time Seen by Provider: 09/15/24 08:20 Source: patient and RN notes reviewed Mode of arrival: ambulatory Limitations: no limitations History of Present Illness HPI Narrative: 54-year-old male presents with concern for acute right eye pain. Reports he woke up at 4:00 a.m. with sudden eye pain. He denies any known injury or trauma. Reports the eye is watery and blurry. 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 He did not have any symptoms yesterday or last night. Reports he woke up at 4:00 a.m. with pain. He denies purulent drainage. Reports light sensitivity. chief complaint: eye pain Related Data Allergies Allergy/AdvReac Type Severity Reaction Status Date / Time amoxicillin Allergy Severe Unresponsiv Verified 09/15/24 08:05 e Penicillins Allergy Severe bradycardia Verified 09/15/24 08:05 Review of Systems Review of Systems: CONSTITUTIONAL: Denies malaise, chills, sweats, or fever. EYES: Reports right eye pain and blurry vision ENT: Denies rhinorrhea, congestion, sinus pain, otalgia or sore throat. SKIN: Denies rash or itching. NEUROLOGIC: Denies numbness, weakness, or headache. All systems reviewed & are unremarkable except as noted in HPI and below PMFSH Past Medical History Medical History Type 2 diabetes mellitus Hypertension Coronary artery disease History of stents in 2017 and 2019. Hepatic steatosis Arthritis Tobacco use Hyperlipidemia Surgical History Surgical History History of tonsillectomy and adenoidectomy History of arthroscopy of left knee (02/2020) History of coronary angioplasty with insertion of stent LAD in 2018. OM circumflex in 2019. History of cardiac catheterization Family History Family History Father Diabetes mellitus FH: heart attack Hypertension Mother Diabetes mellitus FH: heart attack Hypertension Other Heart disease Malignant neoplasm Social History Social History Social History: Surrogate medical decision maker: Renetta Roblesin, friend. Code status: Do not resuscitate. Smoking packs per day: 1 Smoking cigarettes per day: 20.0 Years smoked: 30 Smoking pack-years: 30.00 Smoking status: Current every day smoker Tobacco type: cigarettes Second hand tobacco smoke exposure: Yes Alcohol intake: never Substance use: never Do You Feel Safe in your Home?: Yes Lack of Transportation: No Lack of Food: Never True Current Housing: I Have Housing Concerned About Future Housing: No Difficulty Paying Gas/Electric Bills: No Difficulty Paying for Meds: No Currently Unemployed: No Education: Trade/Vocational Certificate Difficulty w/ Childcare or Family Care: No Living arrangements: alone Additional living arrangements comments: Lives in [place]. 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 Spiritual care concerns: No Comments At time of signature, agree with nursing past medical, surgical, social and family history. There is no relevant family history pertinent to the presenting complaint Exam Narrative: GENERAL: Well-appearing, well-nourished, and in no acute distress. HEAD: Normocephalic, atraumatic. EYES: PERRLA and EOMI. No nystagmus. Right conjunctivae not injected, sclerae injected, no foreign body or corneal abrasion noted upon Wood's lamp exam, cornea in general eye exam is unremarkable. Pupil become pinpoint with light exposure. Upper and lower eyelid unremarkable, no periorbital edema noted. Right eye extremely sensitive to light, left eye not sensitive to light ENT: Nares clear, turbinates pink, no rhinorrhea or epistaxis. Mucous membranes moist. NECK: Supple. CHEST: No respiratory distress. Speaks in full sentences. HEART: Regular rate and rhythm. SKIN: Warm, dry, no visible rash. NEURO: Alert and oriented x3. PSYCH: Normal mood and affect Course Course Emergency Course: My discussed exam findings with patient and advised that he follow-up with Ophthalmology today, offered to call and try to find him an appointment with an veneer slicing machine operator this morning. Patient refused, saying he does not ?like going to the doctor?. I advised him that potential diagnosis, if left untreated, could lead to vision loss and that we do not have the equipment at the urgent care to do a comprehensive evaluation of his eye. He is still refusing to go to the eye doctor this morning or the emergency room. I will treat the patient to the best of my ability, again reminding him that this may not be the definitive treatment for his symptoms and this could lead to vision loss, he verbalizes understanding, nurse witnessed conversation. Anticipatory guidance given. Portions of this record may have been created with voice recognition software Level of Care: Express Care Visit Vital Signs Vital signs: Vital Signs Temperature 97.1 F L 09/15/24 08:13 Pulse Rate 68 09/15/24 08:13 Respiratory Rate 18 09/15/24 08:13 Blood Pressure 119/71 09/15/24 08:13 Pulse Oximetry 100 09/15/24 08:13 Oxygen Delivery Room Air 09/15/24 08:13 Temperature 97.1 F L 09/15/24 08:13 Pulse Rate 68 09/15/24 08:13 Respiratory Rate 18 09/15/24 08:13 Blood Pressure 119/71 09/15/24 08:13 Pulse Oximetry 100 09/15/24 08:13 Oxygen Delivery Room Air 09/15/24 08:13 Reviewed. Procedures Other Procedure Procedure 1: Other Procedure: Tetracaine 1 gtt instilled in left eye, fluorescein stain applied. No Corneal abrasion noted upon hopson lamp exam. No foreign bodies or Maldonado sign noted. MDM - Eye Problem MDM Narrative Medical decision making narrative: Consideration of the following conditions may be warranted for the presenting problem, they are not final diagnoses: Bacterial conjunctivitis, allergic conjunctivitis, viral conjunctivitis, foreign body, blepharitis, chalazion, hordeolum, corneal abrasion, preseptal cellulitis, orbital cellulitis. No evidence of proptosis, ophthalmoplegia, vision loss, pain with eye movement. His symptoms are not consistent with foreign body, corneal abrasion, conjunctivitis. Patient is refusing further evaluation with veneer slicing machine operator. He says if his symptoms are not better by Tuesday he will go to the eye doctor, again I advised him that this is not the best plan of action and he should seek evaluation with an eye doctor today. Patient is non-toxic appearing and is in no distress. Differential Diagnosis Differential diagnosis: Likely corneal abrasion, conjunctivitis, acute iritis and other (foreign body) Critical Care Time Critical Care Time Critical Care Time: No Discharge Plan Discharge Clinical Impression: Acute eye pain Patient Disposition: Home Condition: Stable Instructions: Uveitis (DC) Additional Instructions: It is my recommendation that you go see an eye doctor today for further evaluation of your symptoms, I suspect you have uveitis, which without proper diagnosis could damage or vision permanently. Because you are choosing not to go to the eye doctor right away I will treat this to the best of my ability which there may not be the proper treatment without definitive diagnosis. Please take medications as prescribed Please call your eye doctor right get an appointment as soon as possible or go to the emergency room if your symptoms worsen. Patient Language: Malagasy Prescriptions: New prednisolone acetate 1 % drops,suspension 1 drp RIGHT EYE Q12H Qty: 5 0RF prednisone 50 mg tablet 50 mg PO DAILY 5 Days Qty: 5 0RF No Action (DME) lancets [OneTouch UltraSoft 2 Lancet] 30 gauge misc See Rx Instructions .ROUTE .MEDSUPPLY Qty: 200 12RF Rx Instructions: 4 times a day empagliflozin 25 mg tablet 25 mg PO DAILY Qty: 90 1RF (DME) OneTouch Ultra Test Strip See Rx Instructions .ROUTE .MEDSUPPLY Qty: 200 12RF Rx Instructions: test 4 times a day (DME) pen needle, diabetic 32 gauge x 5/32 needle See Rx Instructions .ROUTE .MEDSUPPLY Qty: 100 12RF Rx Instructions: 4 times a day metformin 500 mg tablet 1,000 mg PO BID Qty: 360 1RF (DME) blood-glucose meter [OneTouch Verio Flex meter] Misc See Rx Instructions .ROUTE .MEDSUPPLY Qty: 1 0RF Rx Instructions: As directed Ozempic 1 mg/dose (4 mg/3 mL) pen injector 1 mg subcut WEEKLY Qty: 9 1RF ticagrelor [Brilinta] 90 mg Tablet 90 mg PO Q12HR Qty: 180 3RF aspirin 81 mg tablet,delayed release (DR/EC) 81 mg PO QAM Qty: 90 1RF atorvastatin 40 mg tablet See Rx Instructions .ROUTE .COMPLEX Qty: 90 3RF Dose Instruction: TAKE 2 TABLETS DAILY Rx Instructions: TAKE 2 TABLETS DAILY Follow-up/Referrals: PHYSICIAN,SIDE STITCHER [Primary Care Provider] - Stand Alone Forms: Work/School Release IP Time of Disposition: 08:43
[2024-09-15 08:13] VITALS: BP 119/71; PULSE 68; RESP 18; TEMP 36.2; O2SAT 100
== END 2024-09-15 08:44 | disposition home or self-care (01) ==
PROVIDERS: Emergency Provider Nurse Practitioner; Referring Provider Family Medicine
DX: H57.11 Ocular pain, right eye (principal); E11.9 Type 2 diabetes mellitus without complications; I10 Essential (primary) hypertension; I25.10 Atherosclerotic heart disease of native coronary artery without angina pectoris; E78.5 Hyperlipidemia, unspecified; F17.210 Nicotine dependence, cigarettes, uncomplicated
CPT/HCPCS: 99213; A9270; G0463

== ENCOUNTER 2025-01-07 13:13 | Outpatient (CLI) | payer OTHER, SELFPAY ==
[2025-01-07 14:17] LABS: Hematocrit 48.7 % (42.0-52.0); Hemoglobin 15.5 g/dL (14.0-18.0); Mean Corpuscular HGB Conc 31.8 g/dl (32-36); Mean Corpuscular Hemoglobin 29.7 pg (26-34); Mean Corpuscular Volume 93.3 fl (80-100); Platelet Count Result 203 k/mm3 (150-375); Red Blood Count 5.22 M/mm3 (4.6-6.20); White Blood Count 10.0 K/mm3 (4.5-10.0)
[2025-01-07 14:39] LABS: Alanine Aminotransferase 28 U/L (6-50); Albumin Level 4.4 g/dL (3.5-5.1); Alkaline Phosphatase 74 U/L (38-126); Anion Gap 10 mmol/L (4-12); Aspartate Amino Transferase 29 U/L (17-59); Bilirubin,Total 0.8 mg/dL (0.2-1.3); Blood Urea Nitrogen 14 mg/dL (9-20); Calcium 9.4 mg/dL (8.4-10.2); Carbon Dioxide 26 mmol/L (22-30); Chloride 105 mmol/L (98-107); Cholesterol 119 mg/dL (0-200); Estimated Glomerular Filt Rate > 60; Glucose 100 mg/dL (65-110); HDL Direct 45 mg/dL; Potassium 5.2 mmol/L (3.4-5.0); Sodium 141 mmol/L (137-145); Total Protein 7.5 g/dL (6.3-8.2); Triglycerides 109 mg/dL (<150)
[2025-01-07 14:46] LABS: MALB Creatinine Ratio 6.5 mg/g (0-30)
[2025-01-07 14:57] LABS: Free T4 Free Thyroxine 1.30 ng/dL (0.78-2.19)
[2025-01-07 15:14] LABS: Thyroid Stimulating Hormone 0.887 uIU/mL (0.465-4.680)
[2025-01-07 15:33] LABS: Vitamin B12 397.0 pg/mL (239-931)
== END 2025-01-07 13:14 | disposition home or self-care (01) ==
LOC: ANHLAB 13:14
PROVIDERS: Visit Provider Internal Medicine
DX: E11.65 Type 2 diabetes mellitus with hyperglycemia (principal); I10 Essential (primary) hypertension; E78.5 Hyperlipidemia, unspecified; E83.42 Hypomagnesemia
CPT/HCPCS: 36415; 80053; 80061; 82043; 82306; 82607; 84439; 84443; 85027